=== PATIENT | female | born 1965 | race Caucasian/White ===

== ENCOUNTER 2017-03-03 08:44 | Inpatient (IN) | payer OTHER ==
[2017-03-03] MEDS ORDERED: DiphenhydrAMINE 50 mg/ml Inj IVP STA (09:09)
[2017-03-03] MEDS ORDERED: EPINEPHrine 1 mg/ml (1:1000) Inj IM STA (09:11)
--- NOTE | 2017-03-03 09:17 | ED PDOC ---
Arrival/HPI - General Chief Complaint: Allergic Reaction Time Seen by Provider: 03/03/17 09:02 Historian: Patient - History of Present Illness Narrative History of Present Illness (Text): 03/03/17 09:05 Lola Rojas is a 51 year old female, who presents to the emergency department complaining of an allergic reaction since three days ago. Patient reports she dyed her hair, which caused her to have itchiness, burning sensation , and swelling on her face and neck. Patient reports it began Friday night (3 days ago) but it has gradually become worse. She notes taking Benadryl one day ago, but there was no relief. Patient also complaining of swelling and "soreness " in throat and some shortness of breath. Patient denies headache, chest pain, abdominal, nausea, vomiting, or other complaints. PMD: None Time/Duration: < week (3 days ago) Symptom Onset: Gradual Symptom Course: Worsening Associated Symptoms (Text): itchiness, burning, swelling on face and neck, and shortness of breath Past Medical History - Provider Review Nursing Documentation Reviewed: Yes - Infectious Disease Hx of Infectious Diseases: None - Reproductive Menopause: Yes - Psychiatric Hx Substance Use: No - Anesthesia Hx Anesthesia: No Family/Social History - Physician Review Nursing Documentation Reviewed: Yes Family/Social History: Other (non-contributory) Smoking Status: Unknown If Ever Smoked Hx Alcohol Use: No Hx Substance Use: No Allergies/Home Meds Allergies/Adverse Reactions: Allergies hair dye Allergy (Uncoded 03/03/17 08:55) RASH Home Medications: Home Meds Medication Instructions Recorded Confirmed No Known Home Med 03/03/17 03/03/17 Review of Systems - Review of Systems Constitutional: absent: Fevers Respiratory: SOB. absent: Cough Cardiovascular: absent: Chest Pain Gastrointestinal: absent: Abdominal Pain, Nausea, Vomiting Skin: Other (face swelling, itchiness, and burning sensation ) Physical Exam Vital Signs Reviewed: Yes Vital Signs Temp Pulse Resp BP Pulse Ox 03/03/17 15:09 98.7 F 80 18 132/87 100 03/03/17 14:18 18 124/79 97 03/03/17 11:49 83 18 122/63 03/03/17 10:56 98.3 F 83 18 124/68 03/03/17 08:51 98 F 82 18 113/65 99 Temperature: Afebrile Blood Pressure: Normal Pulse: Regular Respiratory Rate: Normal Appearance: Positive for: Well-Appearing, Non-Toxic, Comfortable Pain Distress: None Mental Status: Positive for: Alert and Oriented X 3 - Systems Exam Head: Present: Atraumatic, Normocephalic Pupils: Present: PERRL Extroacular Muscles: Present: EOMI Conjunctiva: Present: Normal Mouth: Present: Moist Mucous Membranes, Normal Lips, Normal Tounge Pharnyx: Present: Normal. No: ERYTHEMA, EXUDATE, TONSILS ENLARGED, Peritonsilar Swelling, Uvular Deviation, Muffled/Hoarse Voice, Strider, Soft Palate/Uvular Edema Neck: Present: Normal Range of Motion Respiratory/Chest: Present: Clear to Auscultation, Good Air Exchange. No: Respiratory Distress, Accessory Muscle Use Cardiovascular: Present: Regular Rate and Rhythm, Normal S1, S2. No: Murmurs Abdomen: Present: Normal Bowel Sounds. No: Tenderness, Distention, Peritoneal Signs Upper Extremity: Present: Normal Inspection, Edema ((+)edema of the upper face forehead and eyelids. (+) edema throughout scalp line. no lip or tongue swelling. no throat swelling.), Normal ROM, NORMAL PULSES. No: Cyanosis Lower Extremity: Present: Normal Inspection, NORMAL PULSES, Normal ROM. No: Edema Neurological: Present: GCS=15, CN II-XII Intact, Speech Normal Skin: Present: Warm, Dry, Normal Color. No: Rashes Psychiatric: Present: Alert, Oriented x 3, Normal Insight, Normal Concentration Medical Decision Making ED Course and Treatment: 03/03/17 14:20 The pt reports improvement in her breathing but continues to have severe facial swelling even after rx in the ED. there is no evidence of airway involvement at this time. disc w Dr Pugh will admit for continues IV steroids and observation. pt resting quietly at this time no resp distress. - Lab Interpretations Lab Results: 03/03/17 10:30 03/03/17 10:30 Lab Results 03/03/17 10:30: Sodium 140, Potassium 4.2, Chloride 107, Carbon Dioxide 26, Anion Gap 11, BUN 14, Creatinine 0.7, Est GFR ( Amer) > 60, Est GFR (Non- Af Amer) > 60, Random Glucose 91, Calcium 9.4, Total Bilirubin 0.8, AST 26, ALT 29, Alkaline Phosphatase 85, Total Protein 7.7, Albumin 4.0, Globulin 3.7, Albumin/Globulin Ratio 1.1 03/03/17 10:30: WBC 4.6, RBC 3.67, Hgb 11.9 L, Hct 36.4, MCV 99.2, MCH 32.4, MCHC 32.7, RDW 13.2, Plt Count 270, MPV 10.5, Gran % 48.9 L, Lymph % (Auto) 39.9 H, White % (Auto) 7.8 H, Eos % (Auto) 3.2, Baso % (Auto) 0.2, Gran # 2.27, Lymph # 1.9, White # 0.4, Eos # 0.2, Baso # 0.01 I have reviewed the lab results: Yes - Medication Orders Current Medication Orders: Albuterol/Ipratropium (Duoneb 3 Mg/0.5 Mg (3 Ml) Ud) 3 ml IH [id number] MIGUEL Last Admin: 03/04/17 07:50 Dose: 3 ml Albuterol/Ipratropium (Duoneb 3 Mg/0.5 Mg (3 Ml) Ud) 3 ml IH Q2H PRN PRN Reason: Shortness of Breath Benzonatate (Tessalon Perles) 100 mg PO Q8H PRN PRN Reason: Cough Diphenhydramine HCl (Benadryl) 50 mg IVP Q6H PRN PRN Reason: Itching / Pruritus Last Admin: 03/04/17 02:14 Dose: 50 mg IVP Administration Document 03/04/17 02:14 [facility] (Rec: 03/04/17 02:20 [facility] [id number]) Charges for Administration # of IVP Administrations 1 Famotidine (Pepcid) 20 mg IVP DAILY MIGUEL Sodium Chloride (Sodium Chloride 0.9%) 1,000 mls @ 100 mls/hr IV .Q10H MIGUEL Last Admin: 03/03/17 23:30 Dose: 100 mls/hr eMAR Start Stop Document 03/03/17 23:30 [facility] (Rec: 03/04/17 00:06 [facility] [id number]) Intravenous Solution Start Date 03/03/17 Start Time 23:30 End Date 03/04/17 End time 09:30 Total Infusion Time 600 Acetaminophen (Ofirmev) 1,000 mg in 100 mls @ 400 mls/hr IVPB Q6H PRN PRN Reason: Pain, Mild (1-3) Stop: 03/05/17 23:34 Last Admin: 03/04/17 00:07 Dose: 400 mls/hr eMAR Start Stop Document 03/04/17 00:07 MPD (Rec: 03/04/17 00:09 MPD [id number]) Intravenous Solution Start Date 03/04/17 Start Time 00:00 End Date 03/04/17 End time 00:15 Total Infusion Time 15 [facility] Pain Assessment Document 03/04/17 00:07 MPD (Rec: 03/04/17 00:09 D [id number]) Pain Reassessment Is this a pain reassessment? No Sleep Is patient sleeping during reassessment? No Presence of Pain Presence of Pain Yes Pain Scale Used Pain Scale Used Numeric Location Left, Right or Bilateral Bilateral Pain Location Body Teller Temporal Description Description Throbbing Intensity of Pain at present 8 Pain Behavior Facial Grimacing Aggravating Factors None Alleviating Factors/Management Medication Techniques Alleviating Factors Medication Effects of Pain unable to sleep Re-Assess: [facility] Pain Assessment Document 03/04/17 01:07 MPD (Rec: 03/04/17 07:49 MPD [facility] [id number]) Pain Reassessment Is this a pain reassessment? Yes Sleep Is patient sleeping during reassessment? Yes Loratadine (Claritin) 10 mg PO DAILY [facility]IGUEL Methylprednisolone (Solu-Medrol) 40 mg IVP Q12 [facility] Last Admin: 03/03/17 21:28 Dose: 40 mg IVP Administration Document 03/03/17 21:28 MJ (Rec: 03/03/17 21:28 [id number]) Charges for Administration # of IVP Administrations 1 Montelukast Sodium (Singulair) 10 mg PO HS MIGUEL Last Admin: 03/03/17 21:28 Dose: 10 mg Discontinued Medications Diphenhydramine HCl (Benadryl) 50 mg IVP STAT STA Stop: 03/03/17 09:10 Last Admin: 03/03/17 10:13 Dose: 50 mg IVP Administration Document 03/03/17 10:13 RG (Rec: 03/03/17 10:13 RG [id number]) Charges for Administration # of IVP Administrations 1 Epinephrine HCl (Epinephrine) 0.3 mg IM STAT STA Stop: 03/03/17 09:12 Last Admin: 03/03/17 10:13 Dose: 0.3 mg IM Administration Charges Document 03/03/17 10:13 RG (Rec: 03/03/17 10:14 RG [id number]) Injection Site MAR Injection Site Right Deltoid Charges for Administration # of IM Administrations 1 Famotidine (Pepcid) 20 mg IVP STAT STA Stop: 03/03/17 09:10 Last Admin: 03/03/17 10:13 Dose: 20 mg IVP Administration Document 03/03/17 10:13 RG (Rec: 03/03/17 10:13 RG [id number]) Charges for Administration # of IVP Administrations 1 Sodium Chloride (Sodium Chloride 0.9%) 1,000 mls @ 999 mls/hr IV .Q1H1M STA Stop: 03/03/17 12:12 Last Admin: 03/03/17 11:15 Dose: 999 mls/hr eMAR Start Stop Document 03/03/17 11:15 RG (Rec: 03/03/17 11:33 [id number]) Intravenous Solution Start Date 03/03/17 Start Time 11:15 End Date 03/03/17 End time 12:15 Total Infusion Time 60 Ibuprofen (Motrin Tab) 600 mg PO STAT STA Stop: 03/03/17 17:30 Last Admin: 03/03/17 17:51 Dose: 600 mg [facility] Pain/Vitals Document 03/03/17 17:51 DSZ (Rec: 03/03/17 17:51 DSZ [id number]) Pain Reassessment Is This A Pain ReAssessment? No Sleep Is patient sleeping during reassessment? No Presence of Pain Presence of Pain Yes Pain Scale Used Pain Scale Used Numeric Location Pain Location Body Site Neck Description Intermittent Intensity 9 Scale Used Numeric Pain Behavior Withdrawal from Touch Alleviating Factors Medication Re-Assess: [facility] Pain/Vitals Document 03/03/17 18:51 DSZ (Rec: 03/03/17 19:12 DSZ [id number]) Pain Reassessment Is This A Pain ReAssessment? Yes Sleep Is patient sleeping during reassessment? No Presence of Pain Presence of Pain Yes Pain Scale Used Pain Scale Used Numeric Location Pain Location Body Site Neck Description Intermittent Intensity 3 Scale Used Numeric Pain Behavior Withdrawal from Touch Alleviating Factors Medication Methylprednisolone (Solu-Medrol) 125 mg IVP STAT STA Stop: 03/03/17 09:10 Last Admin: 03/03/17 10:12 Dose: 125 mg IVP Administration Document 03/03/17 10:12 CELINA (Rec: 03/03/17 10:12 RG [id number]) Charges for Administration # of IVP Administrations 1 Pneumococcal Polyvalent Vaccine (Pneumovax 23 Vaccine) 0.5 ml IM .ONCE ONE Stop: 03/03/17 17:59 - Scribe Statement The provider has reviewed the documentation as recorded by the Fidel Banks Provider Scribe Attestation: All medical record entries made by the Scribe were at my direction and personally dictated by me. I have reviewed the chart and agree that the record accurately reflects my personal performance of the history, physical exam, medical decision making, and the department course for this patient. I have also personally directed, reviewed, and agree with the discharge instructions and disposition. Disposition/Present on Arrival - Present on Arrival Any Indicators Present on Arrival: No History of DVT/PE: No History of Uncontrolled Diabetes: No Urinary Catheter: No History of Decub. Ulcer: No History Surgical Site Infection Following: None - Disposition Have Diagnosis and Disposition been Completed?: Yes Diagnosis: Allergic reaction Disposition: HOSPITALIZED Disposition Time: 14:31 Patient Problems: Current Active Problems Problem Status Onset Allergic reaction Acute Condition: STABLE
[2017-03-03 10:41] LABS: BASO # 0.01 K/mm3 (0.0-2.0); BASO % 0.2 % (0.0-3.0); EOS # 0.2 (0.0-0.7); EOS % 3.2 % (1.5-5.0); GRAN # 2.27 (1.4-6.5); GRAN % 48.9 % (50.0-68.0); HEMATOCRIT 36.4 % (36.0-48.0); LYMPH # 1.9 (1.2-3.4); LYMPH % 39.9 % (22.0-35.0); MEAN CELL VOLUME 99.2 fl (80.0-105.0); MEAN CORPUSCULAR HEMOGLOBIN 32.4 pg (25.0-35.0); MEAN CORPUSCULAR HGB CONC 32.7 g/dl (31.0-37.0); MEAN PLATELET VOLUME 10.5 fl (7.0-11.0); MONO # 0.4 (0.1-0.6); MONO % 7.8 % (1.0-6.0); RED CELL DISTRIBUTION WIDTH 13.2 % (11.5-14.5); WHITE BLOOD COUNT 4.6 10^3/ul (4.5-11.0)
[2017-03-03 10:46] LABS: ALB/GLOB RATIO 1.1 (1.1-1.8); ALKALINE PHOSPHATASE 85 U/L (38-126); ALT/SGPT 29 U/L (7-56); AST/SGOT 26 U/L (14-36); BILIRUBIN,TOTAL 0.8 mg/dL (0.2-1.3); BLOOD UREA NITROGEN 14 mg/dL (7-21); CALCIUM 9.4 mg/dL (8.4-10.5); CARBON DIOXIDE 26 mmol/L (21-33); CHLORIDE 107 mmol/L (98-107); GFR AFRICAN-AMERICAN > 60; GLUCOSE,RANDOM 91 mg/dL (70-110); POTASSIUM 4.2 mmol/L (3.6-5.0); SODIUM 140 mmol/L (132-148); TOTAL PROTEIN 7.7 g/dL (5.8-8.3)
[2017-03-03] MEDS ORDERED: Sodium Chloride 0.9% 1,000 ML IV STA (11:12)
[2017-03-03] MEDS ORDERED: Influenza Vaccine 60 mcg/0.5 mL SYR (4YR UP) IM ONE (17:58)
[2017-03-03] MEDS ORDERED: Pneumococcal 23-Valent Vaccine IM ONE (17:58)
[2017-03-03] MEDS: Albuterol-Ipratrop 3 mg / 0.5 (3 ml) UD IH SCH ×2 (18:01→19:03)
--- NOTE | 2017-03-03 20:36 | CP.PCM.CON ---
<Malorie Contreras - Last Filed: 03/03/17 22:00> History of Present Illness - History of Present Illness History of Present Illness: ICU evaluation consult for Dr Blake. Reason for consult: Shortness of breath Patient is a 51 y/o with PMH of CAP last year presenting with allergic reaction to hair dye. Patient states on Friday night she used the product for the first time, and right after washing her hair, she started to feel itchiness on her scalps, she washed her hair multiple time again afterward with no significant improvement. By Friday she started to notice large bumps in the back of her scalp, then few more bumps formed on her face. On friday she noted swelling of her face. This Morning when she woke up her eyes were completely shut, with sore throat when she swallows, and swelling around her neck and diffuse stomach aches. Patient was with her normal self prior to using this product. Patient denies fever, chills, n/v/d. Patient admits to cough and sob when she tries to communicate. Admits to chest pain with the coughing. The cough is mostly dry. Patient has no known history of allergies, and no history of asthma. ICU is consulted for evaluation of the shortness of breath and possible close monitoring in the ICU. PMH: CAP last year PSH: FMH: Denies h/o asthma, htn, dm in the family. 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 Home meds: none Allergy: nkda Review of Systems - Constitutional Constitutional: Headache. absent: Chills, Fever, Weight Loss, Weakness - EENT Eyes: Pain, Other (eyelid swelling, feels numb when she tries to open her eyes. ). absent: Blurred Vision, Change in Vision, Loss of Peripheral Vision, Photophobia Ears: absent: Ear Pain, Abnormal Hearing, Dizziness Nose/Mouth/Throat: Change in Voice, Lip Swelling, Sore Throat, Throat Swelling, Facial Pain, Neck Pain, Neck Mass. absent: Nasal Congestion, Tongue Swelling - Cardiovascular Cardiovascular: Chest Pain, Dyspnea, Edema (of face). absent: Chest Pain at Rest, Irregular Heart Rhythm, Leg Edema, Lightheadedness, Palpitations, Pedal Edema, Radiating Pain, Rapid Heart Rate, Slow Heart Rate, Syncope - Respiratory Respiratory: Cough, Dyspnea, Wheezing, Pain on Inspiration, Pain with Coughing. absent: Hemoptysis, Dyspnea on Exertion, Snoring, Stridor, Chest Congestion, Excessive Mucous Production - Gastrointestinal Gastrointestinal: Abdominal Pain. absent: Belching, Bloating, Change in Stool Character, Diarrhea, Heartburn, Nausea - Genitourinary Genitourinary: absent: Dysuria - Musculoskeletal Musculoskeletal: Neck Pain. absent: Muscle Weakness, Myalgias, Numbness - Integumentary Integumentary: Erythema, Pruritus, Rash, Skin Pain, Skin Ulcer, Swelling (of face) - Neurological Neurological: absent: Dizziness, Loss of Vision - Psychiatric Psychiatric: Anxiety - Endocrine Endocrine: absent: Deepening of Voice, Fatigue - Hematologic/Lymphatic Hematologic: absent: Easy Bleeding Past Patient History - Infectious Disease Hx of Infectious Diseases: None - Tetanus Immunizations Tetanus Immunization: Unknown - Past Medical History & Family History Past Medical History?: Yes Past Family History: Reviewed and not pertinent - Past Social History Smoking Status: Never Smoked Chewing Tobacco Use: No Cigar Use: No Alcohol: None Drugs: Denies Home Situation {Lives}: With Family - PULMONARY Hx Pneumonia: Yes (2015) - MUSCULOSKELETAL/RHEUMATOLOGICAL Hx Falls: No - PSYCHIATRIC Hx Substance Use: No - SURGICAL HISTORY Hx Surgeries: Yes (12/15/1989) - ANESTHESIA Hx Anesthesia: No Meds Allergies/Adverse Reactions: Allergies Allergy/AdvReac Type Severity Reaction Status Date / Time hair dye Allergy RASH Uncoded 03/03/17 08:55 - Medications Medications: Current Medications Acetaminophen (Tylenol 325mg Tab) 650 mg PO Q4H PRN PRN Reason: pain fever Albuterol/Ipratropium (Duoneb 3 Mg/0.5 Mg (3 Ml) Ud) 3 ml IH [id number] [facility] Last Admin: 03/03/17 19:03 Dose: Not Given Famotidine (Pepcid) 40 mg PO HS [facility] Loratadine (Claritin) 10 mg PO DAILY [facility] Methylprednisolone (Solu-Medrol) 40 mg IVP Q12 [facility] Montelukast Sodium (Singulair) 10 mg PO HS [facility] Physical Exam - Constitutional Appears: In Acute Distress (mild respiratory distress) - Head Exam Head Exam: ATRAUMATIC, NORMOCEPHALIC. absent: NORMAL INSPECTION (multiple bumps and erythematous rashes on the scalp, neck an face.) - Eye Exam Eye Exam: EOMI, Periorbital swelling, Scleral icterus. absent: Conjunctival injection, Periorbital tenderness - ENT Exam ENT Exam: Mucous Membranes Moist, Normal Oropharynx Additional comments: no tongue edema, mild gum swelling diffusely. no tonsilar edema, or deviation, no peritonsilar abscess, +mild throat irritation. - Neck Exam Neck exam: Positive for: Lymphadenopathy (frontal cervical adenpathy rafat.), Tenderness. Negative for: Thyromegaly - Respiratory Exam Respiratory Exam: Chest Wall Tenderness, Wheezes (diffusely, inspiratory.), Respiratory Distress (mild). absent: Accessory Muscle Use, Rales, Rhonchi, Stridor - Cardiovascular Exam Cardiovascular Exam: Tachycardia, REGULAR RHYTHM, RRR, +S1, +S2. absent: Gallop , JVD, Rubs - GI/Abdominal Exam GI & Abdominal Exam: Normal Bowel Sounds, Soft, Tenderness (diffusely.). absent : Distended, Firm, Guarding, Mass, Rigid - Extremities Exam Extremities exam: Positive for: normal inspection. Negative for: pedal edema, tenderness - Back Exam Back exam: NORMAL INSPECTION. absent: CVA tenderness (L), CVA tenderness (R), paraspinal tenderness, rash noted - Neurological Exam Neurological exam: Alert, Oriented x3 - Psychiatric Exam Psychiatric exam: Anxious, Normal Affect - Skin Skin Exam: Abrasion (on the face.), Dry, Rash (on the scalp and face, diffuse with mild erythema.), Warm Results - Vital Signs Recent Vital Signs: Last Vital Signs Temp 98.3 F 03/03/17 17:46 Pulse 75 03/03/17 17:46 Resp 21 03/03/17 17:46 BP 135/73 03/03/17 17:46 Pulse Ox 96 03/03/17 16:55 - Labs Result Diagrams: 03/03/17 10:30 03/03/17 10:30 Assessment & Plan - Assessment and Plan (Free Text) Assessment: 51 y/o F with no significant PMH admitted due to angioedema like symptoms likely from allergic reaction to hair dye, and ICU is being consulted due to worsening in shortness of breath. Patient is currently stable hemodynamically and respiratory cheng. However due to the extent of the edema, patient to be closely monitored in ICU. Plan: Neurology: Patient is a&ox3 and is able to speak in full sentences. Pulm: Angioedema likely due to allergic reaction to hair dye. - Patient is currently saturating well on room air. - Will obtain ABG - Will transfer patient to icu for close monitoring - CT neck soft tissue to evaluate for tracheal narrowing - Head of bed elevation above 35 degrees to prevent aspiration. - Continue with solumedrol 40 mg q12, duoneb q6 standing and q2 prn - will start Benadryl for pruritus, and tessalon pearls for cough - continue Pepcid. - 2 L nasal cannula prn - Will consult ENT Cardiology: Patient is hemodynamically stable, will continue to monitor. Renal: stable, will continue to monitor. Started on NS100 cc/hr for maintenance. Endo: keep normoglycemic. GI: Keep npo, Pepcid for gi prophylaxis. Heme: stable, will continue to monitor. ID: patient with low probability for sepsis, will continue to monitor. will keep normothermic. Prophylaxis: Compression mechanical devices for DVT prophylaxis, and Pepcid for gi prophylaxis. Patient seen, examined and case discussed with the attending. - Date & Time Date: 03/03/17 Time: 22:00 <Piero Blake Q - Last Filed: 03/04/17 03:05> Meds - Medications Medications: Current Medications Albuterol/Ipratropium (Duoneb 3 Mg/0.5 Mg (3 Ml) Ud) 3 ml IH [id number] [facility] Last Admin: 03/04/17 01:45 Dose: 3 ml Albuterol/Ipratropium (Duoneb 3 Mg/0.5 Mg (3 Ml) Ud) 3 ml IH Q2H PRN PRN Reason: Shortness of Breath Benzonatate (Tessalon Perles) 100 mg PO Q8H PRN PRN Reason: Cough Diphenhydramine HCl (Benadryl) 50 mg IVP Q6H PRN PRN Reason: Itching / Pruritus Last Admin: 03/04/17 02:14 Dose: 50 mg Famotidine (Pepcid) 20 mg IVP DAILY [facility] Sodium Chloride (Sodium Chloride 0.9%) 1,000 mls @ 100 mls/hr IV .Q10H [facility] Last Admin: 03/03/17 23:30 Dose: 100 mls/hr Acetaminophen (Ofirmev) 1,000 mg in 100 mls @ 400 mls/hr IVPB Q6H PRN PRN Reason: Pain, Mild (1-3) Stop: 03/05/17 23:34 Last Admin: 03/04/17 00:07 Dose: 400 mls/hr Loratadine (Claritin) 10 mg PO DAILY [facility]IGUEL Methylprednisolone (Solu-Medrol) 40 mg IVP Q12 [facility] Last Admin: 03/03/17 21:28 Dose: 40 mg Montelukast Sodium (Singulair) 10 mg PO HS [facility] Last Admin: 03/03/17 21:28 Dose: 10 mg Results - Vital Signs Recent Vital Signs: Last Vital Signs Temp 97.9 F 03/03/17 22:24 Pulse 61 03/04/17 01:00 Resp 13 03/04/17 01:00 BP 143/74 03/04/17 01:00 Pulse Ox 98 03/04/17 01:00 - Labs Result Diagrams: 03/03/17 10:30 03/03/17 10:30 Labs: Laboratory Results - last 24 hr 03/03/17 20:55 pCO2 33 L pO2 96.0 HCO3 20.0 L ABG pH 7.39 ABG Total CO2 21.0 L ABG O2 Saturation 98.3 H ABG O2 Content 16.9 ABG Base Excess -4.2 L ABG Hemoglobin 12.4 ABG Carboxyhemoglobin 1.4 POC ABG HHb (Measured) 1.7 ABG Methemoglobin 0.7 ABG O2 Capacity 17.2 Hgb O2 Saturation 96.2 FiO2 21.0 Attending/Attestation - Attestation I have personally seen and examined this patient.: Yes I have fully participated in the care of the patient.: Yes I have reviewed all pertinent clinical information: Yes Notes (Text): 03/04/17 03:01 I agree with the above mentioned note and exam with the addition of the followin51 y/o female without a significant PMHx presented to the hospital after experiencing an allergic reaction to hair dye 3 days prior. ICU consulted for further management and evaluation due to patient having episodes of wheezing while on the medical floor. Patient taken to ICU for closer monitoring however on physical exam, she demonstrates no stridor bilaterally and wheezing is end expiratory along with adequate air entry/exchange bilaterally. CT Neck/soft tissues done to evaluate for laryngeal edema, however appeared within normal limits.
[2017-03-03] MEDS ORDERED: Albuterol-Ipratrop 3 mg / 0.5 (3 ml) UD IH PRN (21:00)
[2017-03-03 21:01] LABS: ARTERIAL BLOOD GAS O2 CAPACITY 17.2 mL/dl (16-24); ARTERIAL BLOOD GAS O2 CONTENT 16.9 ML/dl (15-23); ARTERIAL BLOOD GAS PH 7.39 (7.35-7.45); ARTERIAL BLOOD HGB O2 SAT 96.2 % (95.0-98.0); CARBOXYHEMOGLOBIN 1.4 % (0.5-1.5); HHB 1.7 % (0-5); METHEMOGLOBIN 0.7 % (0.0-3.0)
[2017-03-03] MEDS: MethylPREDNISolone 40 mg Vial IVP SCH (21:28)
[2017-03-03] MEDS: DiphenhydrAMINE 50 mg/ml Inj IVP PRN (21:35)
[2017-03-03] MEDS ORDERED: Iodixanol 320 MG/ML 100 ML BOTTLE IV ONE (23:24)
[2017-03-03] MEDS: Sodium Chloride 0.9% 1,000 ML IV SCH (23:30)
--- NOTE | 2017-03-04 00:58 | CT ---
EXAM: CT Neck With Intravenous Contrast EXAM DATE/TIME: 03/03/2017 9:01 PM CLINICAL HISTORY: 51 years old, female; Signs and symptoms; Dyspnea / difficulty breathing; Additional info: Evaluate for trachea narrowing TECHNIQUE: Axial computed tomography images of the neck with intravenous contrast. All CT scans at this facility use one or more dose reduction techniques, viz.: automated exposure control; ma/kV adjustment per patient size (including targeted exams where dose is matched to indication; i.e. head); or iterative reconstruction technique. Coronal and sagittal reformatted images were created and reviewed. CONTRAST: 100 mL of OMNI administered intravenously. COMPARISON: There are no prior studies for comparison. FINDINGS: Brain: No acute abnormalities are seen in visualized portion of the brain. Sinuses: There is no acute sinusitis. Ears and mastoids Middle ears and mastoids are unremarkable Orbits: Orbital contents are unremarkable. Superficial soft tissues: There is superficial left facial edema. There is less extensive right facial edema. Tonsils and adenoids: Tonsils and adenoids are unremarkable. Deep facial spaces: Parapharyngeal spaces are symmetric. There are no facial masses. Retropharyngeal soft tissues are unremarkable. Salivary glands: Parotid and submandibular glands are unremarkable. Airway: Airway is unremarkable. There is no airway obstruction. Epiglottis and aryepiglottic folds are unremarkable. Subglottic trachea is normal in caliber. Thyroid: Right lobe of the thyroid is unremarkable. There is a heterogeneous complex left thyroid nodule. Nodule measures approximately 1.8 x 1.7 x2.3 cm. ascular: Vascular structures are unremarkable. Nodes: There are small shotty cervical nodes. Lung apices: Motion limits evaluation of the lung apices. There is dependent atelectasis. Bony structures: There are no acute osseous abnormalities. There are degenerative changes in the visualized spine IMPRESSION: No airway obstruction; asymmetric facial edema left greater than right; shotty adenopathy; complex left thyroid nodule, sonography is suggested for more optimal evaluation Additional findings as described above.
[2017-03-04] MEDS: Albuterol-Ipratrop 3 mg / 0.5 (3 ml) UD IH SCH ×4 (01:45→19:54)
[2017-03-04] MEDS: DiphenhydrAMINE 50 mg/ml Inj IVP PRN ×3 (02:14→21:43)
--- NOTE | 2017-03-04 03:14 | PCM.SEPTIC ---
Sepsis Progress Note - Reassessment Type Time of Evaluation: 03:15 Reassessment Type: Non-invasive reassessment - Non Invasive Reassessment Were the most recent vital sign reviewed: Yes Vital Sign (Latest): Temp Pulse Resp BP Pulse Ox 97.9 F 61 13 143/74 98 03/03/17 22:24 03/04/17 01:00 03/04/17 01:00 03/04/17 01:00 03/04/17 01:00 Cardiovascular: Yes: Regular Rate, Rhythm, Chest Non Tender Respiratory: Yes: Normal Breath Sounds. No: Accessory Muscle Use, Crackles, Rales, Rhonchi, Wheezing, Respiratory Distress Capillary Refill: Normal (Less than 2 sec) Skin: Normal Color, Warm, Dry - Invasive Reassessment (complete 2 of 4) Was a Central Venous Pressure Measurement obtained within 6 Hours after the presentation of septic shock: No Was a central venous oxygen measurement obtained within 6 hours after the presentation of septic shock: No Was a bedside cardiovascular ultrasound performed within 6 hours after the presentation of septic shock: No Was a passive leg raise performed or was a fluid challenge performed within 6 hrs of the initial fluid bolus: Yes Fluid Challenge performed: Yes
--- NOTE | 2017-03-04 04:27 | HP ---
CHIEF COMPLAINT: Swelling of the face, shortness of breath, something is stuck in my throat, and itchiness of the head. HISTORY OF PRESENT ILLNESS: Ms. Lola Rojas is a 51-year-old female with past medical history of pneumonia last year, came to the emergency room with allergic reaction to the hair color. The patient states that on Friday night, she used the product for the first time and right after washing her hair, she started to fell itchiness on her scalp. She washed her hair multiple times that is five times again and again afterward with no significant improvement. By Friday, she stated to notice a large bump in the back of her scalp then few more bumps formed on the face. On Friday, she noticed swelling of her lips. This morning when she woke up, her eyes were completely shut off and sore throat when she swallowed. She feels around her neck and diffuse some pain and diffuse stomach aches. The patient was with her normal self prior to the use of the product. No fever. No chills. No history of nausea, vomiting, or diarrhea. The patient admits to cough and shortness of breath when she tries to communicate. She is not able to complete even one sentence without coughing. A length of time discussion done with the ER physician and in the evening when I went to see the patient on the 5th floor, I was not comfortable with that patient's situation, sitting on the creative intern of the room on the creative intern bed, then I told nurse I want to transfer this patient to the ICU. Package Delivery Room Service Runner consult called. According to the patient, she does not have any history of any type of allergies, no history of asthma, but has pneumonia last year. ICU strategic consultant came and appreciated their output. PAST MEDICAL HISTORY: Not significant. History of pneumonia last year and section. FAMILY HISTORY: History of hypertension and diabetes mellitus in the family. SOCIAL HISTORY: She denies smoking. No alcohol abuse. No illicit drugs. 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 HOME MEDICATIONS: Denied. Just took Benadryl [id number] after this allergic reaction. ALLERGIES: THE PATIENT IS NOT ALLERGIC WITH ANY MEDICATION. REVIEW OF SYSTEMS: The patient was seen and examined on the bedside on the 5th floor in the corner room, not feeling comfortable. Eyes are still completely closed. Feeling shortness of breath. Even on command, she was not able to open her eyes and was not able to complete sentence in one breath. Coughing. Feeling something is stuck in the throat. PHYSICAL EXAMINATION VITAL SIGNS: Temperature is 98.3, pulse 75, blood pressure 135/73, and respiratory rate 21. HEENT: Head has bumps. Atraumatic and normocephalic. Eyes are , completely closed. Nose is patent. Lips are swollen. Mucous membranes moist. Whole face is swollen. NECK: Supple. No carotid bruits or thyromegaly. CHEST: Bilaterally symmetrical. HEART: S1 and S2 positive. LUNGS: Poor air entry. ABDOMEN: Soft. Bowel sound present. No organomegaly. EXTREMITIES: No edema. No cyanosis. NEUROLOGIC: The patient is awake and alert. Moving all four extremities. No focal deficits. Obeying order. LABORATORY DATA: White blood cell 4.6, hemoglobin 11.9, hematocrit 36.4, and platelets 270. Sodium 140, potassium 4.2, BUN 14, creatinine 0.7, AST 26, ALT 29. ASSESSMENT AND PLAN: Ms. Lola Rojas is a 51-year-old lady with anemia, allergic reaction with the dye, history of pneumonia last year, and history of section. The patient was admitted and IV steroids given. Respiratory distress. Package Delivery Room Service Runner consult called. Facial swelling. We will put ENT consult also. Consult called with Dr. Ap Oseguera for angioedema. Epinephrine given. Pepcid was given for GI prophylaxis. Singulair was started. Solu-Medrol given. We will follow up. Sameera Pugh MD
[2017-03-04 06:43] LABS: BASO # 0.01 K/mm3 (0.0-2.0); BASO % 0.1 % (0.0-3.0); GRAN # 9.47 (1.4-6.5); HEMATOCRIT 34.3 % (36.0-48.0); LYMPH # 1.3 (1.2-3.4); LYMPH % 11.9 % (22.0-35.0); MEAN CELL VOLUME 98.6 fl (80.0-105.0); MEAN CORPUSCULAR HEMOGLOBIN 32.8 pg (25.0-35.0); MEAN CORPUSCULAR HGB CONC 33.2 g/dl (31.0-37.0); MEAN PLATELET VOLUME 10.9 fl (7.0-11.0); MONO # 0.3 (0.1-0.6); RED CELL DISTRIBUTION WIDTH 13.1 % (11.5-14.5); WHITE BLOOD COUNT 11.1 10^3/ul (4.5-11.0)
[2017-03-04 07:13] LABS: BLOOD UREA NITROGEN 11 mg/dL (7-21); CALCIUM 9.2 mg/dL (8.4-10.5); CARBON DIOXIDE 23 mmol/L (21-33); CHLORIDE 111 mmol/L (98-107); GFR AFRICAN-AMERICAN > 60; GLUCOSE,RANDOM 121 mg/dL (70-110); POTASSIUM 4.1 mmol/L (3.6-5.0); SODIUM 142 mmol/L (132-148)
--- NOTE | 2017-03-04 07:37 | CP.CCUPN ---
<Rian Flaherty - Last Filed: 03/04/17 11:48> CCU Subjective - Physician Review Subjective (Free Text): Patient seen and examined at bedside. Resting comfortably in bed. No acute overnight events. Patient states SOB has improved relative to baseline. Offers no new complaints at this time. Denies fever, chills, chest pain, abdominal pain , nausea, vomiting, diarrhea, constipation, and urinary symptoms. 03/04/17 07:34 CCU Objective - Vital Signs / Intake & Output Intake and Output (Last 8hrs): Intake & Output 03/03/17 03/04/17 03/04/17 22:59 06:59 14:59 Intake Total 360 Balance 360 Weight 250 lb Intake: Oral 360 Other: # Voids Urine, Voided 360 # Bowel Movements 0 - Physical Exam Head: Positive for: Atraumatic, Normocephalic Pupils: Positive for: PERRL Extroacular Muscles: Positive for: EOMI Conjunctiva: Positive for: Normal Mouth: Positive for: Moist Mucous Membranes, Normal Lips, Normal Tounge Pharnyx: Positive for: Normal. Negative for: ERYTHEMA, EXUDATE, TONSILS ENLARGED Neck: Positive for: Normal Range of Motion Respiratory/Chest: Positive for: Clear to Auscultation, Good Air Exchange. Negative for: Respiratory Distress, Accessory Muscle Use Cardiovascular: Positive for: Regular Rate and Rhythm, Normal S1, S2. Negative for: Murmurs Abdomen: Positive for: Normal Bowel Sounds. Negative for: Tenderness, Distention, Peritoneal Signs Upper Extremity: Positive for: Normal Inspection, Normal ROM, NORMAL PULSES. Negative for: Cyanosis Lower Extremity: Positive for: Normal Inspection, NORMAL PULSES, Normal ROM. Negative for: Edema Neurological: Positive for: GCS=15, CN II-XII Intact, Speech Normal Skin: Positive for: Warm, Dry, Normal Color. Negative for: Rashes Psychiatric: Positive for: Alert, Oriented x 3, Normal Insight, Normal Concentration - Medications Active Medications: Active Medications Generic Name Dose Route Start Last Admin Trade Name Freq PRN Reason Stop Dose Admin Albuterol/Ipratropium 3 ml 03/03/17 20:00 03/04/17 01:45 Duoneb 3 Mg/0.5 Mg (3 Ml) Ud IH 3 ml [id number] MIGUEL Administration Albuterol/Ipratropium 3 ml 03/03/17 21:00 Duoneb 3 Mg/0.5 Mg (3 Ml) Ud IH Q2H PRN Shortness of Breath Benzonatate 100 mg 03/03/17 21:01 Tessalon Perles PO Q8H PRN Cough Diphenhydramine HCl 50 mg 03/03/17 21:01 03/04/17 02:14 Benadryl IVP 50 mg Q6H PRN Administration Itching / Pruritus Famotidine 20 mg 03/04/17 10:00 Pepcid IVP DAILY MIGUEL Sodium Chloride 1,000 mls @ 100 mls/hr 03/03/17 21:15 03/03/17 23:30 Sodium Chloride 0.9% IV 100 mls/hr .Q10H MIGUEL Administration Acetaminophen 1,000 mg in 100 mls @ 400 mls/hr 03/03/17 23:33 03/04/17 00:07 Ofirmev IVPB 03/05/17 23:34 400 mls/hr Q6H PRN Administration Pain, Mild (1-3) Loratadine 10 mg 03/04/17 10:00 Claritin PO DAILY MIGUEL Methylprednisolone 40 mg 03/03/17 22:00 03/03/17 21:28 Solu-Medrol IVP 40 mg Q12 MIGUEL Administration Montelukast Sodium 10 mg 03/03/17 22:00 03/03/17 21:28 Singulair PO 10 mg HS MIGUEL Administration - Patient Studies Lab Studies: Lab Studies 03/04/17 03/04/17 03/03/17 Range/Units 05:50 05:50 20:55 WBC 11.1 H D (4.5-11.0) 10^3/ul RBC 3.48 L (3.5-6.1) 10^6/uL Hgb 11.4 L (12.0-16.0) g/dL Hct 34.3 L (36.0-48.0) % MCV 98.6 (80.0-105.0) fl MCH 32.8 (25.0-35.0) pg MCHC 33.2 (31.0-37.0) g/dl RDW 13.1 (11.5-14.5) % Plt Count 277 (120.0-450.0) 10^3/uL MPV 10.9 (7.0-11.0) fl Gran % 85.0 H (50.0-68.0) % Lymph % (Auto) 11.9 L (22.0-35.0) % [place] % (Auto) 3.0 (1.0-6.0) % Eos % (Auto) 0.0 L (1.5-5.0) % Baso % (Auto) 0.1 (0.0-3.0) % Gran # 9.47 H (1.4-6.5) Lymph # 1.3 (1.2-3.4) [place] # 0.3 (0.1-0.6) Eos # 0.0 (0.0-0.7) Baso # 0.01 (0.0-2.0) K/mm3 pCO2 33 L (35-45) mm/Hg pO2 96.0 (80-100) mm/Hg HCO3 20.0 L (21-28) mmol/L ABG pH 7.39 (7.35-7.45) ABG Total CO2 21.0 L (22-28) mmol.L ABG O2 Saturation 98.3 H (95-98) % ABG O2 Content 16.9 (15-23) ML/dl ABG Base Excess -4.2 L (-2.0-3.0) mmol/L ABG Hemoglobin 12.4 (11.7-17.4) g/dL ABG Carboxyhemoglobin 1.4 (0.5-1.5) % POC ABG HHb (Measured) 1.7 (0-5) % ABG Methemoglobin 0.7 (0.0-3.0) % ABG O2 Capacity 17.2 (16-24) mL/dl Hgb O2 Saturation 96.2 (95.0-98.0) % FiO2 21.0 % Sodium 142 (132-148) mmol/L Potassium 4.1 (3.6-5.0) mmol/L Chloride 111 H (98-107) mmol/L Carbon Dioxide 23 (21-33) mmol/L Anion Gap 12 (10-20) BUN 11 (7-21) mg/dL Creatinine 0.6 L (0.7-1.2) mg/dL Est GFR ( Amer) > 60 Est GFR (Non-Af Amer) > 60 Random Glucose 121 H (70-110) mg/dL Calcium 9.2 (8.4-10.5) mg/dL Laboratory Results - last 24 hr 03/03/17 03/04/17 03/04/17 20:55 05:50 05:50 WBC 11.1 H D RBC 3.48 L Hgb 11.4 L Hct 34.3 L MCV 98.6 MCH 32.8 MCHC 33.2 RDW 13.1 Plt Count 277 MPV 10.9 Gran % 85.0 H Lymph % (Auto) 11.9 L [place] % (Auto) 3.0 Eos % (Auto) 0.0 L Baso % (Auto) 0.1 Gran # 9.47 H Lymph # 1.3 [place] # 0.3 Eos # 0.0 Baso # 0.01 pCO2 33 L pO2 96.0 HCO3 20.0 L ABG pH 7.39 ABG Total CO2 21.0 L ABG O2 Saturation 98.3 H ABG O2 Content 16.9 ABG Base Excess -4.2 L ABG Hemoglobin 12.4 ABG Carboxyhemoglobin 1.4 POC ABG HHb (Measured) 1.7 ABG Methemoglobin 0.7 ABG O2 Capacity 17.2 Hgb O2 Saturation 96.2 FiO2 21.0 Sodium 142 Potassium 4.1 Chloride 111 H Carbon Dioxide 23 Anion Gap 12 BUN 11 Creatinine 0.6 L Est GFR ( Amer) > 60 Est GFR (Non-Af Amer) > 60 Random Glucose 121 H Calcium 9.2 Review of Systems - Review of Systems Review of Systems: 12 point review of systems negative except as indicated in the [facility] Critical Care Progress Note - Nutrition Nutrition: Nutrition Category Date Time Status NPO Diet [DIET] Diets 03/03/17 Dinner Ordered Assessment/Plan - Assessment and Plan (Free Text) Assessment: Patient is a 51 y/o female with no significant PMH who was admitted for evaluation and treatment of angioedema whiich is clinically suspected to be from an allergic reaction to hair dye. Patient was transferred to the ICU for closer monitoring of worsening shortness of breath. Patient is currently stable hemodynamically. Plan: Neurology: - Patient is awake, alert, responds to verbal stimuli, answers questions appropriately, follows commands, and moves extremities past midline Pulm: Angioedema likely due to allergic reaction to hair dye. - Patient is currently saturating well on room air - CT neck soft tissue to evaluate for tracheal narrowing- No airway obstruction ; asymmetric facial edema left greater than right; shotty adenopathy; complex left thyroid nodule - 35 degrees to prevent aspiration. - Continue with solumedrol 40 mg q12, duoneb q6 standing and q2 prn - c/w Benadryl for pruritus, and tessalon pearls for cough - continue Pepcid. - 2 L nasal cannula prn - Will consult ENT- await and appreciate recommendations Cardio: - Patient is hemodynamically stable, continue to monitor. - HR trended, reviewed, and appreciated, will continue to monitor closely - BPs trended, reviewed, and appreciated, will continue to monitor closely Renal: - stable, will continue to monitor. Started on NS100 cc/hr for maintenance. - creatinine and BUN trended, reviewed, and appreciated, will continue to monitor closely Endo: - keep euglycemic. - blood glucoses trended, reviewed, and appreciated, will continue to monitor closely GI: - npo - Pepcid for gi prophylaxis. Heme: -Hgbs trended, reviewed, and appreciated , will continue to monitor closely - stable, will continue to monitor. ID: - temperatures are trended, reviewed, and appreciated, will continue to monitor closely - will keep normothermic - WBC elevation noted- likely secondary to IV solumedrol- continue to monitor closely via CBC Dispo: - Patient is stable for transfer out of unit Prophylaxis: Compression mechanical devices for DVT prophylaxis, and Pepcid for gi prophylaxis. Critical care team will sign off at this time. Please reconsult if needed. Thank you for the opportunity to participate in the care of this patient. Patient seen, case discussed with, and plan approved by attending physician, Dr. Turk. <Ankush Turk - Last Filed: 03/04/17 12:10> CCU Objective - Vital Signs / Intake & Output Vital Signs (Last 4 hours): Vital Signs Pulse Resp BP Pulse Ox 03/04/17 09:30 80 20 98 03/04/17 09:20 91 H 20 98 03/04/17 09:14 84 27 H 140/72 03/04/17 09:10 79 18 03/04/17 09:00 85 32 H 03/04/17 08:50 80 16 03/04/17 08:40 83 106 H 03/04/17 08:30 110 H 40 H 03/04/17 08:20 98 03/04/17 08:10 84 15 98 Intake and Output (Last 8hrs): Intake & Output 03/03/17 03/04/17 03/04/17 22:59 06:59 14:59 Intake Total 360 Balance 360 Weight 250 lb 235 lb Intake: Oral 360 Other: # Voids Urine, Voided 360 # Bowel Movements 0 - Medications Active Medications: Active Medications Generic Name Dose Route Start Last Admin Trade Name Freq PRN Reason Stop Dose Admin Acetaminophen 650 mg 03/04/17 09:38 03/04/17 09:46 Tylenol 325mg Tab PO 650 mg Q6H PRN Administration Headache Albuterol/Ipratropium 3 ml 03/03/17 20:00 03/04/17 07:50 Duoneb 3 Mg/0.5 Mg (3 Ml) Ud IH 3 ml [id number] MIGUEL Administration Albuterol/Ipratropium 3 ml 03/03/17 21:00 Duoneb 3 Mg/0.5 Mg (3 Ml) Ud IH Q2H PRN Shortness of Breath Benzonatate 100 mg 03/03/17 21:01 Tessalon Perles PO Q8H PRN Cough Diphenhydramine HCl 50 mg 03/03/17 21:01 03/04/17 02:14 Benadryl IVP 50 mg Q6H PRN Administration Itching / Pruritus Famotidine 20 mg 03/04/17 10:00 03/04/17 09:47 Pepcid IVP 20 mg DAILY MIGUEL Administration Sodium Chloride 1,000 mls @ 100 mls/hr 03/03/17 21:15 03/03/17 23:30 Sodium Chloride 0.9% IV 100 mls/hr .Q10H MIGUEL Administration Acetaminophen 1,000 mg in 100 mls @ 400 mls/hr 03/03/17 23:33 03/04/17 00:07 Ofirmev IVPB 03/05/17 23:34 400 mls/hr Q6H PRN Administration Pain, Mild (1-3) Loratadine 10 mg 03/04/17 10:00 03/04/17 09:46 Claritin PO 10 mg DAILY MIGUEL Administration Methylprednisolone 40 mg 03/03/17 22:00 03/04/17 09:46 Solu-Medrol IVP 40 mg Q12 MIGUEL Administration Montelukast Sodium 10 mg 03/03/17 22:00 03/03/17 21:28 Singulair PO 10 mg HS MIGUEL Administration - Patient Studies Lab Studies: Lab Studies 03/04/17 03/04/17 03/03/17 Range/Units 05:50 05:50 20:55 WBC 11.1 H D (4.5-11.0) 10^3/ul RBC 3.48 L (3.5-6.1) 10^6/uL Hgb 11.4 L (12.0-16.0) g/dL Hct 34.3 L (36.0-48.0) % MCV 98.6 (80.0-105.0) fl MCH 32.8 (25.0-35.0) pg MCHC 33.2 (31.0-37.0) g/dl RDW 13.1 (11.5-14.5) % Plt Count 277 (120.0-450.0) 10^3/uL MPV 10.9 (7.0-11.0) fl Gran % 85.0 H (50.0-68.0) % Lymph % (Auto) 11.9 L (22.0-35.0) % [place] % (Auto) 3.0 (1.0-6.0) % Eos % (Auto) 0.0 L (1.5-5.0) % Baso % (Auto) 0.1 (0.0-3.0) % Gran # 9.47 H (1.4-6.5) Lymph # 1.3 (1.2-3.4) [place] # 0.3 (0.1-0.6) Eos # 0.0 (0.0-0.7) Baso # 0.01 (0.0-2.0) K/mm3 pCO2 33 L (35-45) mm/Hg pO2 96.0 (80-100) mm/Hg HCO3 20.0 L (21-28) mmol/L ABG pH 7.39 (7.35-7.45) ABG Total CO2 21.0 L (22-28) mmol.L ABG O2 Saturation 98.3 H (95-98) % ABG O2 Content 16.9 (15-23) ML/dl ABG Base Excess -4.2 L (-2.0-3.0) mmol/L ABG Hemoglobin 12.4 (11.7-17.4) g/dL ABG Carboxyhemoglobin 1.4 (0.5-1.5) % POC ABG HHb (Measured) 1.7 (0-5) % ABG Methemoglobin 0.7 (0.0-3.0) % ABG O2 Capacity 17.2 (16-24) mL/dl Hgb O2 Saturation 96.2 (95.0-98.0) % FiO2 21.0 % Sodium 142 (132-148) mmol/L Potassium 4.1 (3.6-5.0) mmol/L Chloride 111 H (98-107) mmol/L Carbon Dioxide 23 (21-33) mmol/L Anion Gap 12 (10-20) BUN 11 (7-21) mg/dL Creatinine 0.6 L (0.7-1.2) mg/dL Est GFR ( Amer) > 60 Est GFR (Non-Af Amer) > 60 Random Glucose 121 H (70-110) mg/dL Calcium 9.2 (8.4-10.5) mg/dL Laboratory Results - last 24 hr 03/03/17 03/04/17 03/04/17 20:55 05:50 05:50 WBC 11.1 H D RBC 3.48 L Hgb 11.4 L Hct 34.3 L MCV 98.6 MCH 32.8 MCHC 33.2 RDW 13.1 Plt Count 277 MPV 10.9 Gran % 85.0 H Lymph % (Auto) 11.9 L [place] % (Auto) 3.0 Eos % (Auto) 0.0 L Baso % (Auto) 0.1 Gran # 9.47 H Lymph # 1.3 [place] # 0.3 Eos # 0.0 Baso # 0.01 pCO2 33 L pO2 96.0 HCO3 20.0 L ABG pH 7.39 ABG Total CO2 21.0 L ABG O2 Saturation 98.3 H ABG O2 Content 16.9 ABG Base Excess -4.2 L ABG Hemoglobin 12.4 ABG Carboxyhemoglobin 1.4 POC ABG HHb (Measured) 1.7 ABG Methemoglobin 0.7 ABG O2 Capacity 17.2 Hgb O2 Saturation 96.2 FiO2 21.0 Sodium 142 Potassium 4.1 Chloride 111 H Carbon Dioxide 23 Anion Gap 12 BUN 11 Creatinine 0.6 L Est GFR ( Amer) > 60 Est GFR (Non-Af Amer) > 60 Random Glucose 121 H Calcium 9.2 Critical Care Progress Note - Nutrition Nutrition: Nutrition Category Date Time Status Regular Diet [DIET] Diets 03/04/17 Lunch Ordered Assessment/Plan - Assessment and Plan (Free Text) Plan: Patient seen and examined, on rounds with resident, agree with note, with following additions/exceptions: Pt is 51yo female with no significant PMH who was admitted for evaluation and treatment of angioedema from possible allergic reaction to hair dye. Patient was transferred to the ICU for closer monitoring of worsening shortness of breath. Patient is currently stable hemodynamically. Patient is currently awake , alert, HD stable, comfortable on room air, with no focal wheezing noted. Lungs CTABL, no stridor. Patient tolerated clear liquid breakfast. On exam has no evidence of laryngeal, glossal edema. Patient does have asymetrical facial swelling. Angioedema Recommend: - supp o2 as needed - follow up cultures - Solumedrol 40mg BID - Pepcid 20mg daily - Benadryl 50mg IV qh6r PRN - ENT consult - FS control - GI ppx - DVT ppx - STABLE, transfer to regional medical floor
[2017-03-04] MEDS: MethylPREDNISolone 40 mg Vial IVP SCH ×2 (09:46→21:41)
[2017-03-05] MEDS: Albuterol-Ipratrop 3 mg / 0.5 (3 ml) UD IH SCH ×4 (01:21→19:56)
--- NOTE | 2017-03-05 03:44 | CON ---
DATE: 03/04/2017 EAR, NOSE AND THROAT CONSULTATION CONSULTING PHYSICIAN: Ap Oseguera DO REFERRING PHYSICIAN: Sameera Pugh MD REASON FOR CONSULTATION: Facial swelling. HISTORY OF PRESENT ILLNESS: This is a 51-year-old female with past medical history is nonsignificant who was admitted to [facility] for an allergic reaction to hair dye. The patient reports that on Friday night, she use hair dye for the first time and by Friday, she began noticing swelling to her face. She came to the emergency room on Friday after noticing she was having some difficulty swallowing and breathing. She was admitted to the ICU where she has been treated with Solu-Medrol, Pepcid and Benadryl with good resolution of her symptoms including the swelling of her face and difficulty breathing. She also had a CT scan performed of her neck, which demonstrated facial edema on the left and no airway obstruction. Upon evaluation, she report significant improvement in her symptoms. She feels like the swelling has subsided; however, still a little bit present on her face and her neck. She denies any dysphagia or odynophagia, difficulty breathing, or shortness of breath. No easy breathing or drooling at this point. She denies prior history of allergies and denies prior history of similar events. PAST MEDICAL HISTORY: As stated above. SOCIAL HISTORY: Denies smoking or alcohol use. HOME MEDICATIONS: None. ALLERGIES: NO KNOWN DRUG ALLERGIES. REVIEW OF SYSTEMS: Negative as per HPI. OBJECTIVE: VITAL SIGNS: Her temperature is 98.8, heart rate is 82, blood pressure is 117/77, respirations are 18, and O2 saturation is 100% on room air. GENERAL: She is awake, alert and oriented x3, in no acute distress. HEENT: Head is atraumatic and normocephalic. Eyes: Pupils are equal, round reactive to light. Extraocular movements grossly intact. Ears are unremarkable. Nose is patent bilaterally. No discharge. Oral cavity: Lips are unremarkable with no swelling. Tongue is mobile and midline. No swelling. No floor of mouth edema. Uvula is midline. Palate is symmetrical without swelling. Posterior pharyngeal wall without any abnormalities. Face: She does have some residual swelling periorbitally and in the cheeks of her face. NECK: Supple, nontender, and shotty lymphadenopathy with mild swelling. Thyroid is not enlarged. RESPIRATIONS: Unlabored. No stridor, no drooling, and symmetrical. LABORATORY DATA: She has a white blood cell count of 11.1, hemoglobin of 11.4, hematocrit of 34.3, and platelet count of 237. Sodium of 142, potassium of 4.1, chloride of 111, creatinine of 0.6, and glucose of 121. IMAGING DATA: She has a soft tissue of the neck, which reads no airway protection, asymmetrical facial edema, left greater than right, shotty adenopathy, and complex left thyroid nodule. ASSESSMENT AND PLAN: This is a 51-year-old female with no significant past medical history who present with facial edema secondary to an allergic reaction to hair dye. At this point, the patient seem that she is much improved; however, she still has some residual swelling, I would recommend continuing Solu-Medrol while the patient is in house and discharging her home on a Medrol Dosepak, low suspicion for angioedema, given that the patient had an inciting factor of hair dye which most likely cause the allergic reaction; therefore, I do not think she would need any Pepcid, H2 blockers at this point and Benadryl could be used as needed. The patient's ear, nose, and throat exam at this point is very benign; therefore, diet can be as tolerated and O2 supplementation as needed. The patient should follow up with an travel insurance agent to ensure there are no additional allergies that my have cause this reaction. The remainder of the management is as per primary team. Thank you for allowing us to participate in this patient's care. Ap Oseguera DO
[2017-03-05] MEDS: Sodium Chloride 0.9% 1,000 ML IV SCH (03:52)
[2017-03-05] MEDS: DiphenhydrAMINE 50 mg/ml Inj IVP PRN ×3 (05:21→21:44)
--- NOTE | 2017-03-05 06:52 | CON ---
DATE: 03/04/2017 PULMONARY CONSULTATION REFERRING PHYSICIAN: Dr. Pugh. REASON FOR CONSULTATION: Allergic reaction with laryngeal edema, shortness of breath, and cough. HISTORY OF PRESENT ILLNESS: This is a 51-year-old female without any significant past medical history, recently came to [facility], had some new hair color, ended up with scalp itching, swelling, shortness of breath, facial and lip swelling, comes to ER. She was seen by ICU team, transferred to ICU, received IV steroids and Benadryl with some benefit, presently lying in the ICU, head at 45 degrees. Has obvious swelling of the face, still short of breath. No wheezing, no stridor. No nausea, no vomiting, no diarrhea. According to the patient, she may have some bronchitis and lung disease, has been using outpatient rescue inhaler. PAST MEDICAL HISTORY: History of bronchitis/pneumonia in the past. No other cardiopulmonary disease reported. FAMILY HISTORY: Positive for diabetes, hypertension. SOCIAL HISTORY: She works for [employer]. Denies any smoking or alcohol use. ALLERGIES: UNKNOWN. MEDICATIONS: She is on Benadryl 50 mg IV q. 6 hours p.r.n., Claritin 10 mg daily, albuterol/Atrovent nebulizer q. 6 hours, Tylenol p.r.n., Pepcid 20 mg IV daily, Singulair 10 mg at bedtime, IV fluids normal saline 100 mL per hour, Solu-Medrol 40 mg q. 12 hours, Tessalon Perles q. 8 hours. REVIEW OF SYSTEMS: No headache. Has some rhinitis, cough, shortness of breath, facial swelling. No stridor. No nausea, no vomiting, no diarrhea. No leg pain or leg swelling. Admits to have snoring at nighttime. PHYSICAL EXAMINATION: GENERAL: Lying in the bed, no acute distress. VITAL SIGNS: Temperature is 98, heart rate is 80, respiratory rate is 20, blood pressure is 126/65, and pulse ox is 98% on room air. HEENT: Moist mucous membranes. Crowded airway. Has facial swelling. Mallampati score is 4. Lip has swelling. NECK: There is no stridor. LUNGS: Has a fair airflow with few rhonchi. HEART: S1 and S2. ABDOMEN: Soft and nontender. No organomegaly. EXTREMITIES: No edema. NEUROLOGIC: Awake and alert. Follows simple commands. LABORATORY DATA: Shows hemoglobin 11.4, hematocrit 34.3, WBC 11.1, platelet count is 277. ABG shows pH 7.39, pCO2 of 33, O2 of 96, that was on admission yesterday. Sodium 142, potassium 4.1, chloride 111, bicarbonate 23, BUN 11, creatinine 0.6, glucose is 121, calcium is 9.2. AST 26, ALT 29, alk phos is 85, albumin is 4.0. Has a soft tissue neck CT done, which shows no airway obstruction; asymmetrical facial edema, left greater than the right; shotty adenopathy; complex left thyroid nodule. IMPRESSION AND PLAN: Anaphylactic reaction with laryngeal edema, facial swelling, shortness of breath, probably secondary to chemical composition in her hair color with history of asthma in the past and bronchitis. Agree with present treatment. Continue intravenous Solu-Medrol, antihistamine, p.r.n. Benadryl, gastric prophylaxis. Continue close monitoring. Has a thyroid nodule, will need a followup ultrasound. Once improved outpatient, needs a pulmonary function test and may need a sleep study. Thank you and we will follow with you. Malena Yo MD
[2017-03-05 07:12] LABS: BASO # 0.01 K/mm3 (0.0-2.0); BASO % 0.1 % (0.0-3.0); GRAN # 5.53 (1.4-6.5); GRAN % 73.6 % (50.0-68.0); HEMATOCRIT 34.8 % (36.0-48.0); LYMPH # 1.7 (1.2-3.4); MEAN CELL VOLUME 101.2 fl (80.0-105.0); MEAN CORPUSCULAR HEMOGLOBIN 32.3 pg (25.0-35.0); MEAN CORPUSCULAR HGB CONC 31.9 g/dl (31.0-37.0); MEAN PLATELET VOLUME 10.6 fl (7.0-11.0); MONO # 0.3 (0.1-0.6); MONO % 4.3 % (1.0-6.0); RED CELL DISTRIBUTION WIDTH 13.4 % (11.5-14.5); WHITE BLOOD COUNT 7.5 10^3/ul (4.5-11.0)
[2017-03-05 07:25] LABS: IRON 53 ug/dL (45-180)
[2017-03-05 07:37] LABS: ALB/GLOB RATIO 1.1 (1.1-1.8); ALKALINE PHOSPHATASE 71 U/L (38-126); ALT/SGPT 63 U/L (7-56); AST/SGOT 50 U/L (14-36); BILIRUBIN,TOTAL 0.4 mg/dL (0.2-1.3); BLOOD UREA NITROGEN 10 mg/dL (7-21); CALCIUM 9.1 mg/dL (8.4-10.5); CARBON DIOXIDE 26 mmol/L (21-33); CHLORIDE 109 mmol/L (98-107); CHOLESTEROL 171 mg/dL (130-200); GFR AFRICAN-AMERICAN > 60; GLUCOSE,RANDOM 110 mg/dL (70-110); POTASSIUM 4.6 mmol/L (3.6-5.0); SODIUM 142 mmol/L (132-148); TOTAL PROTEIN 7.4 g/dL (5.8-8.3)
--- NOTE | 2017-03-05 08:57 | PN ---
DATE: 03/04/2017 SUBJECTIVE: The patient is a 51-year-old female. The patient seen and examined in the bedside in the unit, feeling significantly better. Patient still has swelling of the face, currently hemodynamically stable. Awake and alert. No chest pain. Comfortable on room air. No focal wheezing. Lungs are stable. No stridor. The patient tolerated clear liquid for breakfast and for lunch. Food is advanced. No laryngeal edema. The patient does have asymmetrical facial swelling. No nausea, vomiting, or diarrhea. No hematuria or hematochezia. No constipation. No urinary symptoms. No abdominal pain. No fever or chills. PHYSICAL EXAMINATION: VITAL SIGNS: Temperature 98.9, pulse 80, blood pressure 126/65, respiratory rate 20. HEENT: Head is normocephalic, atraumatic. Eyes are open today. Nose patent. Face is swollen. No swelling of the lips. No swelling of the tongue. NECK: Supple. No carotid bruits or thyromegaly. CHEST: Bilaterally symmetrical. HEART: S1 and S2 positive. LUNGS: Clear to auscultation. ABDOMEN: Soft. Bowel sounds present. No organomegaly. EXTREMITIES: No edema, no cyanosis. NEUROLOGIC: The patient is awake and alert. Moving all 4 extremities. No focal deficits. MEDICATIONS: Benadryl, Claritin, DuoNeb, acetaminophen, Pepcid, Singulair, NS, Solu-Medrol, and benzoate. LABORATORY DATA: White blood cells 11.1; on admission, it was 12.6. Hemoglobin 11.4, hematocrit 34.3, platelets 277. Sodium 142, potassium 4.1, BUN 11, creatinine 0.3, glucose 121. ASSESSMENT AND PLAN: The patient is a 51-year-old with leukocytosis, anemia, hyperchloremia, hyperglycemia, history of pneumonia last year, came with angioedema, getting better, swelling is better. We will keep oxygenation as needed. Cultures done, waiting for that. Getting Solu-Medrol, Pepcid, and Benadryl. ENT is on the case, waiting for the input. Gastrointestinal and deep venous thrombosis prophylaxis. Discussion done with the mental health assistant. dora usg of soft tissue of the neck. CAT scan, no area of obstruction. Asymmetrical facial edema, left greater than the right. Spotty adenopathy. Compressed left thyroid nodule. They are suggesting sonography for optimal evaluation. There are degenerative changes in the visualized bone. We will follow. Sameera Pugh MD [facility]
[2017-03-05] MEDS: MethylPREDNISolone 40 mg Vial IVP SCH ×2 (09:55→21:07)
[2017-03-05 13:36] LABS: FOLATE 6.5 ng/mL
--- NOTE | 2017-03-05 13:54 | US ---
HISTORY: especially neck TECHNIQUE: Sonographic evaluation of the thyroid gland. COMPARISON: CT neck soft tissue 03/03/2017 FINDINGS: RIGHT LOBE: Measures 4.3 x 1.1 x 1.5 cm. Minimally heterogeneous Nodules: At least 2 nodules noted: Midpole anterior 6 x 5 x 3 mm nearly isoechoic parallel minimally heterogeneous no increased vascularity. -benign-appearing Lower pole more hypoechoic parallel well-circumscribed homogeneous almost cystic appearing nodule 7 x 3 x 5 mm -benign-appearing LEFT LOBE: Measures 4.7 x 1.7 x 2.4 cm. Mildly heterogeneous Nodules: 2 noted Upper pole heterogeneous circumscribed parallel peripheral vascularity 3.1 x 1.3 x 2.4 cm. No gross calcifications within it noted. Given its size and mild heterogeneity, consider tissue sampling. Indeterminate Lower pole Similar heterogeneous and similar vascularity yet smaller solid nodule 1.0 x 1.2 x 0.8 cm. Consider its FNA for further evaluation as well. ISTHMUS: Measures 0.2 cm. Normal echotexture and flow. Nodules: None OTHER FINDINGS: None . IMPRESSION: Multinodular goiter. Dominant nodules left-sided - consider FNA of at least the largest nodule
--- NOTE | 2017-03-05 15:30 | PN ---
DATE: 03/05/2017 PULMONARY PROGRESS NOTE REFERRING PHYSICIAN: Sameera Pugh MD SUBJECTIVE: The patient is lying in the bed with head at 45 degrees, getting nebulizer treatment, feels better. Still has a facial swelling. Mild shortness of breath. No nausea, no vomiting, no diarrhea. No leg pain or leg swelling. OBJECTIVE: GENERAL: No acute distress. VITAL SIGNS: Temperature 98, heart rate 70, respiratory rate 20, blood pressure 136/83, and pulse oximetry 100% on nasal cannula. HEENT: Moist mucous membranes. Crowed airway. Mallampati score is 4. Has facial swelling. LUNGS: Fair airflow with rhonchi. HEART: S1 and S2. ABDOMEN: Soft and nontender. No organomegaly. EXTREMITIES: No edema. NEUROLOGIC: Awake, alert, and follow simple command. MEDICATIONS: She is on Benadryl 50 mg IV q.6 hours p.r.n. for itching, Claritin 10 mg daily, DuoNeb q.6 hours round the clock and q.12 hours p.r.n., Tylenol p.r.n., Pepcid 20 mg daily, Singulair 10 mg daily, IV fluids normal saline 100 mL per hour, Solu-Medrol 40 mg q.12 hours, and Tessalon Perles 100 mg q.8 hours p.r.n. LABORATORY DATA: Shows hemoglobin 11.1, hematocrit 34.8, WBC 7.5, and platelet count 245. Sodium 142, potassium 4.6, chloride 109, bicarbonate 26, BUN is 10, creatinine 0.7, glucose 110, calcium 9.1, iron is 53, AST 50, ALT 63, alkaline phosphatase is 71, and TSH is 0.44. IMPRESSION AND PLAN: Hair color dye allergic reaction with angioedema, facial swelling, bronchospasm on steroids, antihistamines, and antileukotriene. IV fluid, supplement oxygen, nebulizer treatment. We will order a CBC with differential tomorrow. Continue present care. Thank you and we will follow with you. Malena Yo MD
--- NOTE | 2017-03-05 20:09 | US ---
EXAM: US Abdomen Complete CLINICAL HISTORY: 52 years old, female; Abnormal findings; Abnormal lab test; Elevated liver enzymes; Additional info: Ab. Lft , especially liver TECHNIQUE: Real-time ultrasound of the abdomen (complete) with image documentation. COMPARISON: No relevant prior studies available. FINDINGS: Liver: Liver measures 14.8 CM longitudinally. There is increased echogenicity consistent with fatty infiltration. Portal vein is patent with normal direction of flow. No intrahepatic bile duct dilation. Gallbladder: Gallbladder is contracted. Gallbladder wall thickness is 3 mm. No gallstones. No sonographic Dacosta's sign. Common bile duct: Common bile duct measures 4.6 mm. No stones. No dilation. Pancreas: Unremarkable as visualized. Kidneys: Right kidney measures 11.2 CM longitudinally. Left kidney measures 10.4 CM longitudinally. No stones. No hydronephrosis. Spleen: Spleen measures 10.8 CM longitudinally. Aorta: Unremarkable. No aneurysm. Inferior vena cava: Unremarkable. IMPRESSION: 1. Hepatic steatosis. 2. No biliary duct dilatation. 3. Remainder of findings as above.
--- NOTE | 2017-03-05 23:14 | PN ---
DATE: SUBJECTIVE: The patient is a 52-year-old female. The patient is seen and examined at the bedside. Looking a little bit better. Swelling little bit better, but still lips are swollen, having shortness of breath. No nausea, vomiting or diarrhea. No hematuria or hematochezia. No fever, no chills. No headache, no dizziness. PHYSICAL EXAMINATION: VITAL SIGNS: Temperature 98.4, pulse 71, blood pressure 114/73 and respiratory rate 19. HEENT: Head is normocephalic and atraumatic. Eyes; PERRLA. Extraocular muscles intact. Conjunctivae clear. Nose patent. Mucous membrane moist. NECK: Supple. No carotid bruits. No JVD or thyromegaly. CHEST: Bilaterally symmetrical. HEART: S1 and S2 positive. LUNGS: Clear to auscultation. ABDOMEN: Soft. Bowel sounds present. No organomegaly. EXTREMITIES: No edema. No cyanosis. NEUROLOGIC: The patient is awake and alert. Moving all 4 extremities. No focal deficit. MEDICATIONS: The patient is on Benadryl, Claritin, albuterol, DuoNeb, famotidine, montelukast, prednisone and Tessalon Perles. LABORATORY DATA: White blood cells 7.5, yesterday was 11.1; hemoglobin 11.1; hematocrit 34.8; and platelets 245. Sodium 142, potassium 4.6, BUN 10, creatinine 0.7, iron saturation 15, AST 50 and AST 63. ASSESSMENT AND PLAN: Ms. Lola Rojas is a 52-year-old lady with hyperchloremia, hyperglycemia, iron deficiency, abnormal liver function tests, we will do ultrasound of the liver, history of leukocytosis, anemia, seen by Pulmonary Critical Care due to shortness of breath and HAIR COLOR DYE ALLERGIC REACTION with angioedema. The patient's swelling is getting better. Bronchospasm getting better, on steroid, on antihistamine, antileukotriene and IV fluid. Getting supplement oxygen with the nasal cannula. Repeat electrolytes. Gastrointestinal and deep venous thrombosis prophylaxis. Out of bed, physical therapy. Thyroid nodule. Did thyroid ultrasound. Multinodular goiter, dominant nodule on left side. Consider FNA of at least the largest nodule. Will put consult with Dr. Alex Navarro. Seen by ENT Dr. Ap Oseguera. The patient has no significant past medical history. ENT recommended to continue Solu-Medrol. Actually, according to ENT, low suspicion of angioedema, but ENT never saw the patient , the day of admession with angioedema . The patient's ears, nose and throat examination at this point is very benign as per ENT. 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 We will do ultrasound of the liver because of abnormal liver function tests and we will do biopsy of the thyroid gland. We will follow up. Sameera Pugh MD MTDD
[2017-03-06 00:04] VITALS: RESP 18
[2017-03-06] MEDS: Albuterol-Ipratrop 3 mg / 0.5 (3 ml) UD IH SCH ×3 (01:27→13:22)
[2017-03-06] MEDS: DiphenhydrAMINE 50 mg/ml Inj IVP PRN ×2 (04:20→10:49)
[2017-03-06 06:03] VITALS: BP 151/90; TEMP 98.2
[2017-03-06 06:43] LABS: BASO # 0.01 K/mm3 (0.0-2.0); BASO % 0.1 % (0.0-3.0); EOS % 0.1 % (1.5-5.0); GRAN # 5.6 (1.4-6.5); GRAN % 71.7 % (50.0-68.0); HEMATOCRIT 33.4 % (36.0-48.0); LYMPH # 1.8 (1.2-3.4); LYMPH % 23.1 % (22.0-35.0); MEAN CELL VOLUME 100.3 fl (80.0-105.0); MEAN CORPUSCULAR HEMOGLOBIN 32.7 pg (25.0-35.0); MEAN CORPUSCULAR HGB CONC 32.6 g/dl (31.0-37.0); MEAN PLATELET VOLUME 10.5 fl (7.0-11.0); MONO # 0.4 (0.1-0.6); RED CELL DISTRIBUTION WIDTH 13.4 % (11.5-14.5); WHITE BLOOD COUNT 7.8 10^3/ul (4.5-11.0)
[2017-03-06 07:01] LABS: BLOOD UREA NITROGEN 12 mg/dL (7-21); CARBON DIOXIDE 28 mmol/L (21-33); CHLORIDE 107 mmol/L (98-107); GFR AFRICAN-AMERICAN > 60; GLUCOSE,RANDOM 106 mg/dL (70-110); POTASSIUM 4.9 mmol/L (3.6-5.0); SODIUM 142 mmol/L (132-148)
[2017-03-06 08:58] VITALS: O2SAT 97
[2017-03-06] MEDS: Sodium Chloride 0.9% 1,000 ML IV SCH (10:04)
[2017-03-06] MEDS: MethylPREDNISolone 40 mg Vial IVP SCH (10:05)
[2017-03-06 12:19] VITALS: PULSE 72
== END 2017-03-06 13:21 | disposition home or self-care (01) | DRG 916 ==
LOC: ED 08:44 → ERH 14:29 → 5RNO 16:52 → CCU 22:32 → 2RSO 03-04 17:41 → OBSVTOIN 03-04 20:26
PROVIDERS: ADMIT Internal Medicine; ATTEND Internal Medicine
PROC: 3E0F7GC Introduction of Other Therapeutic Substance into Respiratory Tract, Via Natural or Artificial Opening (ICD-10-PCS; principal; 2017-03-03)
DX: T78.3XXA Angioneurotic edema, initial encounter (principal); J38.4 Edema of larynx; X58.XXXA Exposure to other specified factors, initial encounter; E04.2 Nontoxic multinodular goiter; J45.909 Unspecified asthma, uncomplicated; Z87.01 Personal history of pneumonia (recurrent); Z83.3 Family history of diabetes mellitus; Z82.49 Family history of ischemic heart disease and other diseases of the circulatory system

== ENCOUNTER 2018-02-25 09:07 | Emergency (ER) | payer OTHER ==
[2018-02-25] MEDS: Albuterol-Ipratrop 3 mg / 0.5 (3 ml) UD IH SCH ×3 (09:46→10:19)
--- NOTE | 2018-02-25 09:54 | ED PDOC ---
Arrival/HPI - General Time Seen by Provider: 02/25/18 09:34 Historian: Patient - History of Present Illness Narrative History of Present Illness (Text): 02/25/18 09:51 A 52 year old female, whose past medical history includes pneumonia (2015), presents to the emergency department complaining of shortness of breath with associated chest pain for the past 2 days. 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 States 2 days ago she breathed in a lot of dust and since then symptoms began. Patient mentions chest pain worsens with deep breaths and describes pain as chest tightness. Patient notes also experiening non-productive coughing, however denies any fever, abdominal pain, urinary symptoms, vision changes, or any other complaints at this time. No PMD Past Medical History - Provider Review Nursing Documentation Reviewed: Yes - Infectious Disease Hx of Infectious Diseases: None - Tetanus Immunization Tetanus Immunization: Unknown - Pulmonary Hx Pneumonia: Yes (2015) - Musculoskeletal/Rheumatological Hx Falls: No - Psychiatric Hx Substance Use: No - Anesthesia Hx Anesthesia: No Family/Social History - Physician Review Nursing Documentation Reviewed: Yes Family/Social History: No Known Family HX Smoking Status: Unknown If Ever Smoked Hx Alcohol Use: No Hx Substance Use: No Allergies/Home Meds Allergies/Adverse Reactions: Allergies hair dye Allergy (Uncoded 03/03/17 08:55) RASH Review of Systems - Review of Systems Constitutional: absent: Fevers Eyes: absent: Vision Changes ENT: absent: Hearing Changes Respiratory: SOB, Cough (non-productive) Cardiovascular: Chest Pain (chest tightness, pain with deep breaths). absent: Edema, Calf Pain, SHAIKH, Orthopnea, Syncope Gastrointestinal: absent: Abdominal Pain, Constipation, Diarrhea, Nausea, Vomiting Genitourinary Female: absent: Dysuria, Frequency, Urine Output Changes Musculoskeletal: absent: Other (no calf swelling) Skin: Other (allergic skin changes around eyes) Neurological: absent: Headache, Dizziness, Focal Weakness, Gait Changes, Speech Changes Physical Exam Vital Signs Reviewed: Yes Vital Signs Temp Pulse Resp BP Pulse Ox 02/25/18 09:34 97.9 F 97 H 17 137/84 99 Temperature: Afebrile Blood Pressure: Normal Pulse: Regular Respiratory Rate: Normal Appearance: Positive for: Well-Appearing, Non-Toxic, Comfortable Pain Distress: None Mental Status: Positive for: Alert and Oriented X 3 - Systems Exam Head: Present: Atraumatic, Normocephalic Pupils: Present: PERRL Extroacular Muscles: Present: EOMI Conjunctiva: Present: Normal Mouth: Present: Moist Mucous Membranes Neck: Present: Normal Range of Motion Respiratory/Chest: Present: Wheezes (b/l). No: Respiratory Distress, Rales, Retracting, Rhonchi, Tachypneic Cardiovascular: Present: Regular Rate and Rhythm, Normal S1, S2. No: Murmurs Abdomen: No: Tenderness, Distention, Peritoneal Signs Back: Present: Normal Inspection Upper Extremity: Present: Normal Inspection. No: Cyanosis, Edema Lower Extremity: Present: Normal Inspection. No: Edema Neurological: Present: GCS=15, CN II-XII Intact, Speech Normal Skin: Present: Warm, Dry, Normal Color. No: Rashes Psychiatric: Present: Alert, Oriented x 3, Normal Insight, Normal Concentration Medical Decision Making ED Course and Treatment: 02/25/18 09:54 Impression: 52 year old female with shortness of breath with associated chest pain that worsens with deep breaths. Physical exam shows wheezing to lungs bilaterally Plan: -- EKG -- Chest X-ray -- Labs -- Duoneb -- Toradol -- Reassess and disposition Progress Notes: EKG: Ordered, reviewed, and independently interpreted the EKG. Rate : 88 BPM Rhythm : NSR Interpretation : No ST-segment elevations or depressions, no T-wave inversions, normal intervals. Comparison : No previous EKG for comparison. 02/25/2018 11:02 Chest X-ray IMPRESSION: No active disease. Dictator: Alex Banegas MD 02/25/18 12:06 On reevaluation, wheezing is resolved. Labs reviewed. Symptoms have been for 2 days so outside window for tamiflu. Vitals WNL and well appearing. Instructed to take benadryl for itching around eyes and to avoid exposure to dust and similar triggers. - Lab Interpretations I have reviewed the lab results: Yes - RAD Interpretation Radiology Orders: 02/25/18 09:40 CHEST TWO VIEWS (PA/LAT) [RAD] Stat - Medication Orders Current Medication Orders: Albuterol/Ipratropium (Duoneb 3 Mg/0.5 Mg (3 Ml) Ud) 3 ml IH Q15M MIGUEL Stop: 02/25/18 10:16 Discontinued Medications Ketorolac Tromethamine (Toradol) 30 mg IVP STAT STA Stop: 02/25/18 09:42 - Scribe Statement The provider has reviewed the documentation as recorded by the Fidel Braxton Provider Scribe Attestation: All medical record entries made by the Scribe were at my direction and personally dictated by me. I have reviewed the chart and agree that the record accurately reflects my personal performance of the history, physical exam, medical decision making, and the department course for this patient. I have also personally directed, reviewed, and agree with the discharge instructions and disposition. Disposition/Present on Arrival - Present on Arrival Any Indicators Present on Arrival: No History of DVT/PE: No History of Uncontrolled Diabetes: No Urinary Catheter: No History Surgical Site Infection Following: None - Disposition Have Diagnosis and Disposition been Completed?: Yes Diagnosis: URI (upper respiratory infection) Disposition: HOME/ ROUTINE Disposition Time: 12:06 Patient Plan: Discharge Patient Problems: Current Active Problems Problem Status Onset URI (upper respiratory infection) Acute Condition: GOOD Discharge Instructions (ExitCare): Viral Upper Respiratory Infection, Adult (DC) Additional Instructions: Follow-up with PMD within 2 days. Use albuterol as needed. Return to ED if condition worsens. Prescriptions: Albuterol HFA [Ventolin HFA 90 mcg/actuation (8 g)] 2 puff IH [id number] #1 puff Referrals: FAMILY PROVIDER,NO [Primary Care Provider] - Follow up with primary Forms: WORK NOTE
[2018-02-25 10:27] LABS: BASO # 0.02 K/mm3 (0.0-2.0); BASO % 0.3 % (0.0-3.0); EOS # 0.1 (0.0-0.7); EOS % 0.8 % (1.5-5.0); GRAN # 2.82 (1.4-6.5); GRAN % 45.1 % (50.0-68.0); HEMOGLOBIN 12.4 g/dL (12.0-16.0); LYMPH # 2.9 (1.2-3.4); LYMPH % 46.6 % (22.0-35.0); MEAN CELL VOLUME 97.9 fl (80.0-105.0); MEAN CORPUSCULAR HEMOGLOBIN 32.6 pg (25.0-35.0); MEAN CORPUSCULAR HGB CONC 33.3 g/dl (31.0-37.0); MEAN PLATELET VOLUME 11.5 fl (7.0-11.0); MONO # 0.5 (0.1-0.6); MONO % 7.2 % (1.0-6.0); RBC 3.8 10^6/uL (3.5-6.1); RED CELL DISTRIBUTION WIDTH 13.8 % (11.5-14.5); WHITE BLOOD COUNT 6.3 10^3/ul (4.5-11.0)
[2018-02-25 10:38] LABS: ALB/GLOB RATIO 1.1 (1.1-1.8); ALBUMIN 4.2 g/dL (3.0-4.8); ALT/SGPT 21 U/L (7-56); AST/SGOT 19 U/L (14-36); BLOOD UREA NITROGEN 16 mg/dL (7-21); CALCIUM 9.2 mg/dL (8.4-10.5); GFR NON-AFRICAN AMERICAN > 60
[2018-02-25 10:50] LABS: TROPONIN I < 0.01 ng/mL
--- NOTE | 2018-02-25 11:06 | RAD ---
Date of service: 02/25/2018 HISTORY: cough COMPARISON: No prior. TECHNIQUE: Chest PA and lateral FINDINGS: LUNGS: No active pulmonary disease. PLEURA: No significant pleural effusion identified. No pneumothorax apparent. CARDIOVASCULAR: No aortic atherosclerotic calcification present OSSEOUS STRUCTURES: No significant abnormalities. VISUALIZED UPPER ABDOMEN: Normal. OTHER FINDINGS: None. IMPRESSION: No active disease.
[2018-02-25 11:25] VITALS: BMI 37.5
[2018-02-25 11:27] VITALS: O2SAT 99
[2018-02-25] MEDS ORDERED: Albuterol-Ipratrop 3 mg / 0.5 (3 ml) UD IH STA (12:06)
[2018-02-25 12:39] VITALS: BP 130/82; PULSE 80; RESP 17; TEMP 97.6
--- NOTE | 2018-02-25 14:46 | CARD ---
APPROVED REPORT Date of service: 02/25/2018 EKG Measurement Heart [id number] <Conclusion> Normal sinus rhythm NSSTW changes
== END 2018-02-25 12:38 | disposition home or self-care (01) ==
LOC: ED 09:07
DX: J06.9 Acute upper respiratory infection, unspecified (principal)
CPT/HCPCS: 71046; 80053; 82550; 83880; 84484; 85025; 93005; 96374; 99285; J1885

== ENCOUNTER 2018-04-14 10:18 | Inpatient (IN) | payer OTHER ==
--- NOTE | 2018-04-14 10:28 | ED PDOC ---
Arrival/HPI - General Historian: Patient - History of Present Illness Narrative History of Present Illness (Text): 04/14/18 10:25 53 y/o female, pmh including bronchitis/pneumonia, post menopausal, nkda, c/o coughing/wheezing/fever started last night. Pt. stated that she has been coughing, associated with wheezing, no night sweat, admits fever last night subjectively with no objective temp, afebrile in the ER with no antipyretic taken for the past 8 hours, no recent traveling, no night sweat, no dizziness, no change in vision, no other medical or psychological complaints. Past Medical History - Provider Review Nursing Documentation Reviewed: Yes - Infectious Disease Hx of Infectious Diseases: None - Tetanus Immunization Tetanus Immunization: Unknown - Pulmonary Hx Pneumonia: Yes (2016) - Integumentary Hx Dermatological Disorder: No - Musculoskeletal/Rheumatological Hx Falls: No - Gastrointestinal Hx Gastrointestinal Disorders: No - Genitourinary/Gynecological Hx Genitourinary Disorders: No - Psychiatric Hx Substance Use: No - Anesthesia Hx Anesthesia: No Family/Social History - Physician Review Nursing Documentation Reviewed: Yes Family/Social History: Unknown Family HX Smoking Status: Unknown If Ever Smoked Hx Alcohol Use: No Hx Substance Use: No Allergies/Home Meds Allergies/Adverse Reactions: Allergies hair dye Allergy (Uncoded 03/03/17 08:55) RASH Review of Systems - Review of Systems Constitutional: Fatigue. absent: Fevers Eyes: absent: Vision Changes ENT: absent: Hearing Changes Respiratory: Cough, Sputum, Wheezing. absent: SOB Cardiovascular: absent: Chest Pain Gastrointestinal: absent: Abdominal Pain, Diarrhea, Nausea, Vomiting Skin: absent: Rash, Pruritis Neurological: absent: Headache, Dizziness Psychiatric: absent: Anxiety, Depression, Suicidal Ideation Physical Exam - Systems Exam Head: Present: Atraumatic, Normocephalic Pupils: Present: PERRL Extroacular Muscles: Present: EOMI Conjunctiva: Present: Normal Mouth: Present: Moist Mucous Membranes Neck: Present: Normal Range of Motion Respiratory/Chest: Present: Wheezes, Decreased Breath Sounds, Rhonchi, Tachypneic. No: Clear to Auscultation, Good Air Exchange, Respiratory Distress, Accessory Muscle Use, Rales, Retracting, Tender to Palpation Cardiovascular: Present: Regular Rate and Rhythm, Normal S1, S2. No: Murmurs Abdomen: No: Tenderness, Distention, Peritoneal Signs, Rebound, Guarding Back: Present: Normal Inspection. No: CVA Tenderness, Midline Tenderness, Paraspinal Tenderness, Pain with Leg Raise, Decubitus Ulcer Upper Extremity: Present: Normal Inspection. No: Cyanosis, Edema Lower Extremity: Present: Normal Inspection. No: Edema Neurological: Present: GCS=15, CN II-XII Intact, Speech Normal, Motor Func Grossly Intact, Gait Normal, Memory Normal Skin: Present: Warm, Dry, Normal Color. No: Rashes Lymphatic: No: Cervical Adenopathy Psychiatric: Present: Alert, Oriented x 3, Normal Insight, Normal Concentration Medical Decision Making ED Course and Treatment: 04/14/18 10:28 -Labs -CXR -IVF/duoneb/solumedrol -Observe and reassess 04/14/18 11:30 -Wheezing improved, pt. still complaining about unable to breath efficiently, trops ordered with 2 views CXR as the 04/14/18 13:48 -EKG: NSR @ 77 BPM, no ST elevation or depression, no T wave inversion -Labs are non significant -Mg within normal limit -BNP within normal limit -Trop within normal limit -UA show no UTI -initial portal Chest xray show Question of mild CHF, as discussed above. Limited left perihilar/basilar infiltrate not excluded. Consider PA and lateral chest radiography to better characterize cardiac size as cardiomegaly is not excluded in the interval but is not favored given lack of cardiomegaly in chest radiography 02/25/2018. Pt.'s BNP within normal limit, no cardiomegally, no pedal edema. -2 views full chest xray show: Confirmation of lower lobe infiltrates in particular retrocardiac region/left lower lobe. -Pt. feels improving with increase aeration with no retractions, mild rhonchi on the left lower lobe that clear with coughing, coughing excessively when walking , vitally stable, offered and recommend admission for close monitoring with continuous nebulizer solutions and IV antibiotics but she refused initially now she agreed. -Paging Dr. Pugh for admission as patient request. - RAD Interpretation Radiology Orders: Portal chest xray: Date of service: 04/14/2018 HISTORY: coughing and wheezing COMPARISON: Chest radiographs 02/25/2018. FINDINGS: LUNGS: Borderline patchy infiltrate left perihilar and basilar regions. PLEURA: No significant pleural effusion identified, no pneumothorax apparent. CARDIOVASCULAR: No aortic atherosclerotic calcification present. Cardiac silhouette appears prominent but frontal technique may be causing magnification technically. Clinically correlate further as hilar vascular markings appear increased and CHF is question. OSSEOUS STRUCTURES: No significant abnormalities. VISUALIZED UPPER ABDOMEN: Normal. OTHER FINDINGS: None. IMPRESSION: Question of mild CHF, as discussed above. Limited left perihilar/basilar infiltrate not excluded. Consider PA and lateral chest radiography to better characterize cardiac size as cardiomegaly is not excluded in the interval but is not favored given lack of cardiomegaly in chest radiography 02/25/2018. 2 views CXR, post initial portable chest xray: Date of service: 04/14/2018 HISTORY: CHF? cough and wheezing, smoker COMPARISON: 04/14/2018. performed 10:35. TECHNIQUE: Chest PA and lateral FINDINGS: LUNGS: Lower lobe infiltrates left greater than right also seen on the lateral view. PLEURA: No significant pleural effusion identified. No pneumothorax apparent. CARDIOVASCULAR: No aortic atherosclerotic calcification present. Normal cardiac size. No pulmonary vascular congestion. OSSEOUS STRUCTURES: No significant abnormalities. VISUALIZED UPPER ABDOMEN: Normal. OTHER FINDINGS: None. IMPRESSION: Confirmation of lower lobe infiltrates in particular retrocardiac region/left lower lobe. Insulation Foreman: Radiologist - EKG Interpretation EKG Interpretation (Text): 04/14/18 11:38 -EKG: NSR @ 77 BPM, no ST elevation or depression, no T wave inversion Interpreted by ED Physician: Yes Type: 12 lead EKG - PA / TIRE SORTER / Resident Statement /DO has reviewed & agrees with the documentation as recorded. Disposition/Present on Arrival - Present on Arrival Any Indicators Present on Arrival: No History of DVT/PE: No History of Uncontrolled Diabetes: No Urinary Catheter: No History of Decub. Ulcer: No History Surgical Site Infection Following: None - Disposition Have Diagnosis and Disposition been Completed?: Yes Diagnosis: Community acquired pneumonia, Wheezing Disposition: HOSPITALIZED Disposition Time: 13:51 Patient Plan: Telemetry Patient Problems: Current Active Problems Problem Status Onset Community acquired pneumonia Acute Wheezing Acute Condition: STABLE
[2018-04-14] MEDS ORDERED: Sodium Chloride 0.9% 500 ML IV STA (10:29)
[2018-04-14] MEDS: Albuterol-Ipratrop 3 mg / 0.5 (3 ml) UD IH SCH ×3 (10:43→11:22)
--- NOTE | 2018-04-14 11:03 | RAD ---
Date of service: 04/14/2018 HISTORY: coughing and wheezing COMPARISON: Chest radiographs 02/25/2018. FINDINGS: LUNGS: Borderline patchy infiltrate left perihilar and basilar regions. PLEURA: No significant pleural effusion identified, no pneumothorax apparent. CARDIOVASCULAR: No aortic atherosclerotic calcification present. Cardiac silhouette appears prominent but frontal technique may be causing magnification technically. Clinically correlate further as hilar vascular markings appear increased and CHF is question. OSSEOUS STRUCTURES: No significant abnormalities. VISUALIZED UPPER ABDOMEN: Normal. OTHER FINDINGS: None. IMPRESSION: Question of mild CHF, as discussed above. Limited left perihilar/basilar infiltrate not excluded. Consider PA and lateral chest radiography to better characterize cardiac size as cardiomegaly is not excluded in the interval but is not favored given lack of cardiomegaly in chest radiography 02/25/2018.
[2018-04-14 11:06] LABS: BASO # 0.01 K/mm3 (0.0-2.0); BASO % 0.2 % (0.0-3.0); EOS # 0.1 (0.0-0.7); GRAN # 2.9 (1.4-6.5); GRAN % 60.6 % (50.0-68.0); HEMOGLOBIN 12.5 g/dL (12.0-16.0); LYMPH # 1.4 (1.2-3.4); LYMPH % 28.6 % (22.0-35.0); MEAN CELL VOLUME 98.4 fl (80.0-105.0); MEAN CORPUSCULAR HEMOGLOBIN 32.6 pg (25.0-35.0); MEAN CORPUSCULAR HGB CONC 33.1 g/dl (31.0-37.0); MONO # 0.5 (0.1-0.6); MONO % 9.6 % (1.0-6.0); RBC 3.84 10^6/uL (3.5-6.1); RED CELL DISTRIBUTION WIDTH 13.3 % (11.5-14.5); WHITE BLOOD COUNT 4.8 10^3/uL (4.5-11.0)
[2018-04-14 11:10] LABS: URINE BILIRUBIN NEGATIVE (NEGATIVE); URINE BLOOD NEGATIVE (NEGATIVE); URINE GLUCOSE (UA) NEGATIVE (NEGATIVE); URINE LEUKOCYTE ESTERASE NEGATIVE Leu/uL (NEGATIVE); URINE PROTEIN NEGATIVE mg/dL (<30 mg/dL)
[2018-04-14 11:12] LABS: URINE APPEARANCE CLEAR (CLEAR); URINE COLOR LIGHT YELLOW (YELLOW)
[2018-04-14 11:20] LABS: ALBUMIN 4.1 g/dL (3.0-4.8); ALT/SGPT 32 U/L (7-56); AST/SGOT 30 U/L (14-36); BLOOD UREA NITROGEN 10 mg/dL (7-21); GFR NON-AFRICAN AMERICAN > 60
[2018-04-14 11:51] LABS: B-TYPE NATRIURETIC PEPTIDE 93.3 pg/mL (0-450); TROPONIN I < 0.01 ng/mL
--- NOTE | 2018-04-14 13:17 | RAD ---
Date of service: 04/14/2018 HISTORY: CHF? cough and wheezing, smoker COMPARISON: 04/14/2018. performed 10:35. TECHNIQUE: Chest PA and lateral FINDINGS: LUNGS: Lower lobe infiltrates left greater than right also seen on the lateral view. PLEURA: No significant pleural effusion identified. No pneumothorax apparent. CARDIOVASCULAR: No aortic atherosclerotic calcification present. Normal cardiac size. No pulmonary vascular congestion. OSSEOUS STRUCTURES: No significant abnormalities. VISUALIZED UPPER ABDOMEN: Normal. OTHER FINDINGS: None. IMPRESSION: Confirmation of lower lobe infiltrates in particular retrocardiac region/left lower lobe.
[2018-04-14] MEDS ORDERED: Azithromycin 500MG/NS 250ml 500 MG/250 ML BAG IVPB STA (13:28)
[2018-04-14] MEDS ORDERED: cefTRIAXone 1 gm 1 GM/100 ML BAG IVPB STA (13:28)
[2018-04-14] MEDS ORDERED: Albuterol 0.083% Inhal Sol (2.5 mg/3 mL) UD INH STA (13:29)
[2018-04-14] MEDS ORDERED: Albuterol-Ipratrop 3 mg / 0.5 (3 ml) UD IH STA (13:49)
[2018-04-14] MEDS: Sodium Chloride 0.9% 1,000 ML IV SCH (14:03)
[2018-04-14] MEDS ORDERED: Iodixanol 320 MG/ML 100 ML BOTTLE IV ONE (18:55)
--- NOTE | 2018-04-14 18:56 | CARD ---
APPROVED REPORT Date of service: 04/14/2018 EKG Measurement Heart [id number] <Conclusion> Normal sinus rhythm Normal ECG
[2018-04-15 00:04] VITALS: BMI 36.0
--- NOTE | 2018-04-15 00:43 | HP ---
DATE OF EXAM: 04/14/2018 The patient was seen and examined at the bedside in the emergency room on 04/14/2018. CHIEF COMPLAINT: Shortness of breath, coughing. HISTORY OF PRESENT ILLNESS: Ms. Lola Rojas, 53-year-old female, with past medical history of bronchitis, pneumonia, postmenopausal, came complaining about coughing, wheezing, fever started last night. The patient says that she had been coughing associated with wheezing and with a fever last night. Objective; temperature afebrile in the ER, with no antibiotic taken for the past 8 hours. No recent travel. No night sweats. No dizziness. No changes of vision. No altered mental status. No hematuria or hematochezia. We admitted the patient. Discussion done with ER physician. CAT scan of the chest ordered; results are still pending. PAST MEDICAL HISTORY: Pneumonia. FAMILY HISTORY: Father and mother noncontributory. HABITS: Smoking, denied. Alcohol, no. Drugs, no. ALLERGIES: THE PATIENT IS ALLERGIC WITH HAIR DYE COLOR, GIVING RASH. REVIEW OF SYSTEMS: The patient was seen in the ER, having fatigue, fever. No vision change. No hearing change. Coughing with sputum production, wheezing. No chest pain. No abdominal pain, diarrhea, nausea, vomiting. No rash. No headache, dizziness. No anxiety, depression, suicidal ideation. PHYSICAL EXAMINATION VITAL SIGNS: Temperature 98.5, pulse 87, blood pressure 128/87, respiratory rate 18. HEENT: Head: Normocephalic, atraumatic. Eyes: PERRLA. Extraocular muscles are intact. Conjunctivae clear. Nose patent. Mucous membranes moist. NECK: Supple. No carotid bruit. No JVD or thyromegaly. CHEST: Bilaterally symmetrical. HEART: S1 and S2, positive. LUNGS: Positive wheezing bilaterally. ABDOMEN: Soft. Bowel sounds present. No organomegaly. EXTREMITIES: No edema. No cyanosis. NEUROLOGIC: The patient is awake and alert. Moving all 4 extremities. No focal deficit. LABORATORY DATA: White blood cells 4.8, hemoglobin 12.5, hematocrit 37.8, platelets 236. Sodium 141, potassium 3.9, BUN 10, creatinine 0.9, glucose 96. ASSESSMENT AND PLAN: Ms. Lola Rojas, 53-year-old lady, with hyperchloremia, low anion gap, hypoproteinemia, history of pneumonia, came with fever and chills and coughing. Chest x-ray done showed lower lobe infiltrate, particularly retrocardiac region, left lower lobe. Will get antibiotics. Will get better. Pulmonary consult called with Dr. Yo. Started on NS, albuterol, methylprednisolone, Zithromax given. Angio chest done; results are pending. Repeat labs. We will follow up. Sameera Pugh MD
[2018-04-15] MEDS: Albuterol-Ipratrop 3 mg / 0.5 (3 ml) UD IH SCH ×4 (01:30→20:10)
[2018-04-15 06:59] LABS: BLOOD UREA NITROGEN 9 mg/dL (7-21); CALCIUM 8.9 mg/dL (8.4-10.5); GFR NON-AFRICAN AMERICAN > 60; HDL CHOLESTEROL 38 mg/dL (29-60)
[2018-04-15 07:09] LABS: LDL CHOLESTEROL 109 mg/dL (0-129)
[2018-04-15 07:13] LABS: HEMOGLOBIN 11.5 g/dL (12.0-16.0); MEAN CELL VOLUME 96.9 fl (80.0-105.0); MEAN CORPUSCULAR HEMOGLOBIN 32.1 pg (25.0-35.0); MEAN CORPUSCULAR HGB CONC 33.1 g/dl (31.0-37.0); MEAN PLATELET VOLUME 10.9 fl (7.0-11.0); RBC 3.58 10^6/uL (3.5-6.1); RED CELL DISTRIBUTION WIDTH 13.1 % (11.5-14.5); WHITE BLOOD COUNT 6.8 10^3/uL (4.5-11.0)
[2018-04-15 07:14] LABS: IRON 36 ug/dL (45-180)
[2018-04-15 07:23] LABS: % IRON SATURATION 11 % (20-55); TOTAL IRON BINDING CAPACITY 332 ug/dL (265-497)
--- NOTE | 2018-04-15 08:36 | CT ---
Date of service: 04/14/2018 PROCEDURE: CT Chest with contrast (Pulmonary Angiogram) HISTORY: persistent wheezing/cough COMPARISON: None available. TECHNIQUE: Axial computed tomography images were obtained of the chest in the pulmonary arterial phase of enhancement. Coronal and sagittal reformatted images were created and reviewed. Intravenous contrast dose: Radiation dose: Total exam DLP = 404.48 mGy-cm. This CT exam was performed using one or more of the following dose reduction techniques: Automated exposure control, adjustment of the mA and/or kV according to patient size, and/or use of iterative reconstruction technique. FINDINGS: PULMONARY ARTERIES: Unremarkable. No pulmonary embolism. AORTA: No acute findings. No thoracic aortic aneurysm. No aortic atherosclerotic calcification or mural plaque present. LUNGS: Bilateral perihilar interstitial infiltrates. Small bibasilar subpleural infiltrates. PLEURAL SPACES: Unremarkable. No effusion or pneumothorax. HEART: Unremarkable. No cardiomegaly. No significant pericardial effusion. LYMPH NODES: Bilateral hilar lymphadenopathy. BONES, CHEST WALL: Unremarkable. No fracture or destructive lesion OTHER FINDINGS: Nonspecific 1 centimeter nodule in the left lobe of the thyroid gland. Left hepatic cyst. IMPRESSION: No pulmonary embolism. Bilateral perihilar infiltrates with small subpleural infiltrates in the lung bases. Bilateral hilar lymphadenopathy. Nonspecific 1 centimeter nodule in the left lobe of the thyroid gland. Left hepatic cyst.
[2018-04-15] MEDS: Azithromycin 500MG/NS 250ml 500 MG/250 ML BAG IVPB SCH (09:57)
[2018-04-15] MEDS ORDERED: Azithromycin 500 MG in Sodium Chloride 0.9% 250 ML IVPB SCH (10:00)
[2018-04-15] MEDS ORDERED: cefTRIAXone 1 gm 1 GM/100 ML BAG IVPB SCH (10:00)
--- NOTE | 2018-04-15 12:32 | CON ---
PULMONARY CONSULT NOTE DATE: 04/15/2018 REFERRING PHYSICIAN: Sameera Pugh MD REASON FOR CONSULT: Shortness of breath, coughing, and wheezing. HISTORY OF PRESENT ILLNESS: This is a 53-year-old female with past medical history of bronchitis, pneumonia, who is postmenopausal. IN THE PAST HAD ALLERGIC REACTION WITH LARYNGEAL EDEMA TO HAIR COLOR OR HAIR DYE. This patient is known to us from previous admission, did not followup in office, was noncompliant with treatment recommendation. Today, she presents with shortness of breath, wheezing, and coughing. PAST MEDICAL HISTORY: As mentioned above in the HPI. ALLERGIES: SHE IS ALLERGIC TO HAIR DYE. SOCIAL HISTORY: Denies smoking, no ETOH abuse, and no illicit drug use. FAMILY HISTORY: Positive for diabetes and hypertension. MEDICATIONS: Tylenol 650 mg p.o. every 4 hours as needed for fever, DuoNeb 3 mL inhalation every 6 hours, Zithromax 500 mg daily, Rocephin 1 gram daily, Pepcid 40 mg at bedtime, Solu-Medrol 60 mg every 8 hours and sodium chloride 0.9% at 70 mL per hour. REVIEW OF SYSTEMS: No headache, no rhinitis, chest pain, abdominal pain, nausea, vomiting, diarrhea, dysuria, leg pain or leg swelling reported. The patient does report cough and shortness of breath. PHYSICAL EXAMINATION VITAL SIGNS: Blood pressure 136/81, pulse 74, temperature 97.8, and oxygen saturation 95% on 3 liters. GENERAL: Lying in bed, tachypneic. HEENT: Moist mucus membranes. Crowded airway. Mallampati score of 4. NECK: No stridor. Supple. No JVD. CHEST: Prolonged respiratory phase. Crackles bilaterally. Expiratory wheezing bilaterally. CARDIOVASCULAR: S1 and S2 audible. ABDOMEN: Soft and nontender. No distention. No organomegaly. EXTREMITIES: No bilateral lower extremity edema. NEUROLOGICAL: Awake, alert, verbal, and follows simple commands. LABORATORY DATA: Reviewed. WBC 6.8, RBC 3.58, hemoglobin 11.5, hematocrit 34.7, and platelets 251. Sodium 139, potassium 3.9, chloride 111, carbon dioxide 23, anion gap 10, BUN 9, creatinine 0.6, GFR greater than 60, random glucose 125 and calcium 8.9. ProBNP 93.3 and troponin less then 0.01. Triglycerides 48, cholesterol 171, LDL cholesterol 109 and HDL cholesterol 39. TSH 17. Urinalysis urobilinogen. DIAGNOSTIC DATA: Chest CT; no pulmonary embolism, bilateral perihilar infiltrates with small subpleural infiltrates in the lung bases, bilateral hilar lymphadenopathy, nonspecific 1 cm nodule in the left lobe of the thyroid gland, left hepatic cyst. Chest x-ray, conformation of lower lobe infiltrates in particular retrocardiac region left lower lobe. Electrocardiogram, normal sinus rhythm. IMPRESSION AND PLAN: Exacerbation of chronic obstructive lung disease, we will need further CT scan to followup on infiltrates. No objective fever noted; although, it is reported the patient did have a fever prior to coming to the emergency room. WBCs are presently normal. We will get procalcitonin level in the morning. We will do echocardiogram today due to hilar infiltrates, which can be suggestive of heart failure. We will add Pulmicort and Tessalon Perles for coughs, BiPAP at bedtime, lyrica 25mg BID for cough, Lovenox for DVT prophylaxis. We do suspect some component of sleep apnea syndrome. Sleep apnea precaution, head of bed elevated at 45 degrees, gastric prophylaxis, deep vein thrombosis prophylaxis and continue intervenous Solu-Medrol. Once outpatient we recommend full pulmonary function test and sleep study. This patient was seen and examined with Dr. Yo. Discussed assessment and plan as described above. Thank you for this consult and we will follow with you. Dillon Gillespie APN Malena Yo MD [facility]
[2018-04-15 13:15] LABS: FOLATE 9.7 ng/mL
[2018-04-15] MEDS: Sodium Chloride 0.9% 1,000 ML IV SCH ×2 (13:30→18:44)
[2018-04-15 16:14] VITALS: TEMP 98
[2018-04-15] MEDS: Acetylcysteine 20% Inhal Soln (4ml) IH SCH (20:10)
[2018-04-15] MEDS: Budesonide 0.5 mg/2 ml Inhal Susp UD IH SCH (20:11)
[2018-04-16] MEDS: Albuterol-Ipratrop 3 mg / 0.5 (3 ml) UD IH SCH ×4 (01:29→19:53)
--- NOTE | 2018-04-16 04:21 | PN ---
DATE: 04/15/2018 SUBJECTIVE: The patient is a 53-year-old male. The patient was seen and examined at the bedside on 04/15/2018. Feeling better. Still coughing, but less shortness of breath, but still wheezing. No headache. No abdominal pain. No nausea, vomiting, or diarrhea. No seizures. No swelling of the legs. No chest pain. No palpitation. PHYSICAL EXAMINATION: VITAL SIGNS: Temperature 98.6, blood pressure 130/80, pulse 70, respiratory rate 20, oxygenation 95% on 3 L nasal cannula. HEENT: Head: Normocephalic and atraumatic. Eyes: PERRLA. Extraocular muscles are intact. Conjunctivae clear. Nose patent. Mucous membranes moist. NECK: Supple. No carotid bruits, JVD, or thyromegaly. CHEST: Prolonged expiratory phase, crackles bilaterally, expiratory wheezing bilaterally. HEART: S1 and S2 positive. ABDOMEN: Soft. Bowel sounds present. No organomegaly. EXTREMITIES: Bilateral lower extremities, no cyanosis, no edema. NEUROLOGIC: Awake and alert. Follow simple commands. Moving all four extremities. LABORATORY DATA: White blood cells 6.8, hemoglobin 11.5, hematocrit 34.7, platelets 251. Sodium 139, potassium 3.9, BUN 9, creatinine 0.6, glucose 125. ProBNP 93.9. Triglycerides 48, cholesterol 171. TSH 17. ASSESSMENT AND PLAN: Ms. Lola Rojas is a 53-year-old female, came with exacerbation of chronic obstructive lung disease. Has hilar infiltrates, rule out congestive heart failure. Pulmicort and Tessalon Perles. Bilevel positive airway pressure at night. Lyrica is started. Lovenox for the deep venous thrombosis prophylaxis. Sleep apnea syndrome. The patient is getting Solu-Medrol. The patient has a history of bronchitis and pneumonia. As outpatient, the patient is very noncompliant. Anemia, hyperchloremia, hyperglycemia, prediabetic. Hemoglobin A1c is 5.7. Iron deficiency. Rule out hyperthyroidism. Appreciated Dr. Yo's input. Gastrointestinal and deep venous thrombosis prophylaxis. Repeat labs. We will follow. Sameera Pugh MD
[2018-04-16] MEDS: Acetylcysteine 20% Inhal Soln (4ml) IH SCH ×2 (08:31→19:53)
[2018-04-16] MEDS: Budesonide 0.5 mg/2 ml Inhal Susp UD IH SCH ×2 (08:31→19:53)
[2018-04-16 09:03] VITALS: BP 134/95; RESP 20; O2SAT 93
[2018-04-16] MEDS: Cefpodoxime (Vantin) 200 mg Tab PO SCH ×2 (10:26→21:10)
[2018-04-16] MEDS: Enoxaparin 40 mg Syringe SC SCH (10:26)
[2018-04-16] MEDS: Azithromycin 500MG/NS 250ml 500 MG/250 ML BAG IVPB SCH (10:26)
--- NOTE | 2018-04-16 10:41 | CARD ---
APPROVED REPORT Date of service: 04/16/2018 EXAM: Two-dimensional and M-mode echocardiogram with Doppler and color Doppler. INDICATION EVALUATE HEART FAILURE 2D DIMENSIONS Left Atrium (2D)4.3 (1.6-4.0cm)IVSd1.1 (0.7-1.1cm) LVDd5.9 (3.9-5.9cm)PWd1.1 (0.7-1.1cm) LVDs4.1 (2.5-4.0cm)FS (%) 31.5 % LVEF (%)58.6 (>50%) M-Mode DIMENSIONS Aortic Root2.70 (2.2-3.7cm)Aortic Cusp Exc.2.00 (1.5-2.0cm) Aortic Valve AoV Peak Kawmkoxl087.0cm/Rosie Peak GR.17mmHg Mitral Valve MV E Otyylhkx498.0cm/sMV A Qictwfpb55.1cm/sE/A ratio2.2 TDI E/Lateral E'0.0E/Medial E'0.0 Tricuspid Valve TR Peak [id number]/sRAP [id number] Peak Gr.31mmHg [id number] LEFT VENTRICLE The left ventricle is normal size. There is normal left ventricular wall thickness. The left ventricular function is normal. The left ventricular ejection fraction is within the normal range. There is normal LV segmental wall motion. The left ventricular diastolic function is normal. RIGHT VENTRICLE The right ventricle is normal size. There is normal right ventricular wall thickness. The right ventricular systolic function is normal. ATRIA The left atrium is mildly dilated. The right atrium size is normal. AORTIC VALVE The aortic valve is normal in structure. No aortic regurgitation is present. There is no aortic valvular stenosis. MITRAL VALVE The mitral valve is normal in structure. There is no mitral valve regurgitation noted. There is no mitral valve stenosis. TRICUSPID VALVE There is mild tricuspid regurgitation. There is mild pulmonary hypertension. PULMONIC VALVE There is trace pulmonic valvular regurgitation. GREAT VESSELS The aortic root is normal in size. PERICARDIAL EFFUSION There is no pericardial effusion. <Conclusion> There is normal left ventricular wall thickness. The left ventricular function is normal. The left ventricular ejection fraction is within the normal range. There is normal LV segmental wall motion. The left ventricular diastolic function is normal. There is mild tricuspid regurgitation. There is mild pulmonary hypertension.
--- NOTE | 2018-04-16 12:47 | PN ---
PULMONARY PROGRESS NOTE DATE: 04/16/2018 REFERRING PHYSICIAN: Sameera Pugh MD SUBJECTIVE: The patient is sitting up in bed, no acute distress noted. Breathing has improved. The patient does report that cough continues on occasion. No headache, rhinitis, chest pain, nausea, vomiting, diarrhea, leg pain, leg swelling reported. The patient does report abdominal pain, reports she had a bowel movement. Does report shortness of breath at times. OBJECTIVE: GENERAL: No acute distress. VITAL SIGNS: Blood pressure 134/95, pulse 65, temperature 98, and oxygen saturation 93%. HEENT: Moist mucous membranes. NECK: Supple. No JVD. CARDIOVASCULAR: S1 and S2 audible. LUNGS: Prolonged expiratory phase. Bilateral crackles at the bases. Expiratory wheezing bilaterally. ABDOMEN: Soft, tender on bilateral lower quadrants. Bowel sounds present. No organomegaly. EXTREMITIES: No edema, bilateral lower extremities. NEUROLOGIC: Awake, alert, verbal and follows commands. LABORATORY DATA: Reviewed. No new labs. DIAGNOSTIC DATA: Echocardiogram; LV ejection fraction 58.6, RVSP 41, there is normal left ventricular wall thickness, the left ventricular function is normal, the left ventricular ejection fraction is within the normal range, there is normal LV segmental wall motion. The left ventricular diastolic function is normal. There is mild tricuspid regurgitation. There is mild pulmonary hypertension. MEDICATIONS: Reviewed. Tylenol 650 mg every 4 hours p.r.n. for pain and fever, Mucomyst 4 mL inhalation twice a day, DuoNeb 3 mL inhalation every 6 hours, Zithromax 5 mg daily, Tessalon Perles 100 mg 3 times a day, Pulmicort 0.5 mg every 12, Dilantin 200 mg every 12, Lovenox 40 mg subcu daily, Pepcid 40 mg at bedtime, Solu-Medrol 60 mg every 8 hours and Lyrica 25 mg twice a day. IMPRESSION AND PLAN: Exacerbation of chronic obstructive lung disease, the patient has hilar infiltrates, procalcitonin level pending, pulmonary hypertension, has some component of diastolic dysfunction. Continue gastric prophylaxis, inhaled bronchodilators, continue Lyrica and Tessalon Perles for cough, inhaled steroids, deep venous thrombosis prophylaxis. The patient has suspected sleep apnea syndrome, continue bilevel positive airway pressure use at bedtime, head of bed elevated at 45 degrees, sleep apnea precautions, continue IV steroids. We will get obstructive series today. We recommend this patient have full pulmonary function test and sleep study as outpatient. This patient was seen and examined with Dr. Yo. Discussed assessment and plan as described above. Thank you for this consult, and we will follow with you. Dillon Gillespie APN Malena Yo MD
--- NOTE | 2018-04-16 14:25 | RAD ---
Date of service: 04/16/2018 HISTORY: rule out obstruction COMPARISON: None available. FINDINGS: BOWEL: Small bowel loops are normal in caliber. There is moderate of stool in the ascending and transverse colon there is no bowel dilatation or free intraperitoneal air. BONES: Normal. OTHER FINDINGS: None. IMPRESSION: Moderate stool burden in the colon. Nonspecific nonobstructive bowel gas pattern.
[2018-04-16] MEDS ORDERED: Magnesium Hydroxide Susp 30 ml UD PO ONE (17:07)
--- NOTE | 2018-04-16 23:33 | PN ---
DATE: 04/16/2018 SUBJECTIVE: The patient is a 53-year-old female. The patient was seen and examined at the bedside on 04/16/2018, looking comfortable. Cough is better. Shortness of breath is better. No fever. No chills. No nausea, vomiting, diarrhea. No hematuria or hematochezia. No headache. No dizziness. PHYSICAL EXAMINATION VITAL SIGNS: Temperature 98.6, blood pressure 130/90, pulse 55, respiratory rate 18, oxygenation is 93%. HEENT: Head: Normocephalic, atraumatic. Eyes: PERRLA. Extraocular muscles are intact. Conjunctivae clear. Nose patent. Mucous membranes moist. NECK: Supple. No carotid bruit. No JVD or thyromegaly. CHEST: Bilaterally symmetrical. HEART: S1 and S2, positive. LUNGS: Clear to auscultation. ABDOMEN: Soft. Bowel sounds present. No organomegaly. EXTREMITIES: No edema. No cyanosis. NEUROLOGICAL: The patient is awake and alert. Follows simple commands. LABORATORY DATA: We do not have recent labs today, but I reviewed old labs. MEDICATIONS: Acetylcysteine, DuoNeb, Lovenox, Lyrica, Pepcid, Pulmicort, Solu-Medrol, benzoate, Tylenol, Zithromax. ASSESSMENT AND PLAN: Ms. Lola Rojas is a 53-year-old female with anemia, hyperchloremia, hyperglycemia, iron deficiency, came with exacerbation of chronic obstructive lung disease. The patient has hilar infiltrates. Prolactin level pending. Pulmonary hypertension, has some component of diastolic dysfunction. Continue gastric prophylaxis, inhaled bronchodilators. Continue Lyrica and Tessalon Perles. Echocardiography done shows ejection fraction of 58.6%, mild tricuspid regurgitation. Discussion done with the patient and nursing staff. Abdomen x-ray is done according to Dr. Keely Fletcher; moderate stool burden in the colon, nonspecific, nonobstructive bowel gas pattern. She is seen by Dr. Yo. Gastrointestinal and deep venous thrombosis prophylaxis. Repeat labs. We will follow up. Sameera Pugh MD [facility] # [id number]
[2018-04-16 23:40] VITALS: PULSE 52
[2018-04-17] MEDS: Albuterol-Ipratrop 3 mg / 0.5 (3 ml) UD IH SCH ×3 (01:15→13:14)
[2018-04-17 06:42] LABS: GRAN # 7.66 (1.4-6.5); LYMPH # 1.3 (1.2-3.4); LYMPH % 13.5 % (22.0-35.0); MEAN CELL VOLUME 97.2 fl (80.0-105.0); MEAN CORPUSCULAR HEMOGLOBIN 31.1 pg (25.0-35.0); MONO # 0.5 (0.1-0.6); MONO % 5.5 % (1.0-6.0); RBC 3.54 10^6/uL (3.5-6.1); RED CELL DISTRIBUTION WIDTH 13.2 % (11.5-14.5); WHITE BLOOD COUNT 9.5 10^3/uL (4.5-11.0)
[2018-04-17 07:26] LABS: ALBUMIN 3.7 g/dL (3.0-4.8); ALT/SGPT 31 U/L (7-56); AST/SGOT 33 U/L (14-36); BLOOD UREA NITROGEN 10 mg/dL (7-21); CALCIUM 8.9 mg/dL (8.4-10.5); GFR NON-AFRICAN AMERICAN > 60
[2018-04-17] MEDS: Budesonide 0.5 mg/2 ml Inhal Susp UD IH SCH (07:57)
[2018-04-17] MEDS: Acetylcysteine 20% Inhal Soln (4ml) IH SCH (08:00)
[2018-04-17] MEDS ORDERED: MethylPREDNISolone 40 mg Vial IVP SCH (10:00)
[2018-04-17] MEDS: Azithromycin 500MG/NS 250ml 500 MG/250 ML BAG IVPB SCH (10:17)
[2018-04-17] MEDS: Enoxaparin 40 mg Syringe SC SCH (10:22)
[2018-04-17] MEDS: Cefpodoxime (Vantin) 200 mg Tab PO SCH (10:22)
--- NOTE | 2018-04-17 12:14 | PN ---
PULMONARY PROGRESS NOTE DATE: 04/17/2018 REFERRING PHYSICIAN: Sameera Pugh MD SUBJECTIVE: The patient is sitting up at bedside. No acute distress. No overnight events reporting. Reports shortness of breath and cough is much better. No headache, rhinitis, chest pain, abdominal pain, nausea, vomiting, diarrhea, leg pain or leg swelling reported. The patient does report having large bowel movement last night. OBJECTIVE: GENERAL: No acute distress. VITAL SIGNS: Blood pressure 134/95, pulse 65, temperature 98. HEENT: Moist mucous membranes. Mallampati score of 4. NECK: Supple. No JVD. CARDIOPULMONARY: S1 and S2 audible. LUNGS: No audible wheezing. Prolonged expiratory phase. ABDOMEN: Soft and nontender. No distention. No organomegaly. Bowel sounds present. EXTREMITIES: No bilateral lower extremity edema. NEUROLOGIC: Awake, alert, verbal and follows commands. LABORATORY DATA: Reviewed. WBC 9.5, RBC 3.54, hemoglobin 11, hematocrit 34.4, and platelets 262. Sodium 140, potassium 4.4, chloride 109, carbon dioxide 25, anion gap 12, BUN 10, creatinine 0.6, GFR greater than 60, random glucose 112 and calcium 8.9. Total bilirubin 0.2, AST 33, ALT 31, alkaline phosphatase 68, total protein 7.6, albumin 3.7, globulin 3.9 and albumin globulin ratio 1.0. Procalcitonin 0.07. Abdominal x-ray showed moderate stool burden in the colon, nonspecific, nonobstructive bowel gas pattern. MEDICATIONS: Reviewed. Tylenol 650 mg every 4 hours p.r.n., Mucomyst 4 mL inhalation twice a day, DuoNeb 3 mL inhalation every 6 hours, Zithromax 500 mg daily, Tessalon Perles 100 mg 3 times a day, Pulmicort 0.5 mg inhalation every 12 hours, 200 mg p.o. every 12 hours, Lovenox 40 mg subcutaneous daily, Pepcid 40 mg p.o. at bedtime, Solu-Medrol 40 mg IV push every 12 hours and Lyrica 25 mg p.o. twice a day. IMPRESSION AND PLAN: Exacerbation of chronic obstructive lung disease, pulmonary hypertension. The patient has some component of diastolic dysfunction, doing much better today. Discussed with nursing staff, potential for discharge home today. Continue gastric prophylaxis, inhaled bronchodilators, Lyrica, Tessalon Perles for cough, deep venous thrombosis prophylaxis. The patient has suspected sleep apnea syndrome, continue bilevel positive airway pressure at bed time, head of bed elevated at 45 degrees, sleep apnea precautions. We recommend that the patient should go home on Medrol Dosepak and continue antibiotics as per Infectious Disease. We recommend the patient have full pulmonary function test and sleep study as outpatient. From Pulmonary standpoint the patient is okay to be discharged home. This patient was seen and examined with Dr. Yo. Discussed assessment and plan as described above. Thank you for this consult and we will follow with you. Dillon Gillespie APN Malena Yo MD [facility]
== END 2018-04-17 14:48 | disposition home or self-care (01) | DRG 192 ==
LOC: ED 10:18 → ERH 14:05 → 3RSO 22:18 → OBSVTOIN 04-15 15:52
PROVIDERS: ADMIT Internal Medicine; ATTEND Internal Medicine
PROC: 5A09357 Assistance with Respiratory Ventilation, Less than 24 Consecutive Hours, Continuous Positive Airway Pressure (ICD-10-PCS; principal; 2018-04-15)
DX: J44.1 Chronic obstructive pulmonary disease with (acute) exacerbation (principal); I27.20 Pulmonary hypertension, unspecified; D50.9 Iron deficiency anemia, unspecified; R73.03 Prediabetes; E87.8 Other disorders of electrolyte and fluid balance, not elsewhere classified; G47.30 Sleep apnea, unspecified; F17.200 Nicotine dependence, unspecified, uncomplicated; I07.1 Rheumatic tricuspid insufficiency; Z87.01 Personal history of pneumonia (recurrent); Z91.19 Patient's noncompliance with other medical treatment and regimen

== ENCOUNTER 2018-08-31 20:42 | Observation (INO) | payer OTHER ==
[2018-08-31 21:10] VITALS: BMI 37.1
--- NOTE | 2018-08-31 22:05 | ED PDOC ---
Arrival/HPI - General Chief Complaint: Female Genitourinary Time Seen by Provider: 08/31/18 21:36 Historian: Patient - History of Present Illness Narrative History of Present Illness (Text): 53 year old female, whose past medical history includes asthma, and whose last menstruation was 11 years ago, presents to the emergency department with vaginal bleeding. Patient informs symptoms started 3 days prior, and have been worsen ing. Patient informs initially she needed 1-2 pads a day, and today it is 7-9 pads. Patient denies any trauma, fall, or recent sexual activity. Patient denies any urinary symptoms, melena or hematochezia, rash, chest pain, shortness of breath, or any other complaint. Time/Duration: < week Symptom Onset: Gradual Symptom Course: Worsening Activities at Onset: Light Context: Home Past Medical History - Provider Review Nursing Documentation Reviewed: Yes - Infectious Disease Hx of Infectious Diseases: None - Tetanus Immunization Tetanus Immunization: Unknown - Pulmonary Hx Bronchitis: Yes Hx Pneumonia: Yes - Integumentary Hx Dermatological Disorder: No - Musculoskeletal/Rheumatological Hx Falls: No - Gastrointestinal Hx Gastrointestinal Disorders: No - Genitourinary/Gynecological Hx Genitourinary Disorders: No - Psychiatric Hx Substance Use: No - Surgical History Hx Section: Yes - Anesthesia Hx Anesthesia: Yes Hx Anesthesia Reactions: No Hx Malignant Hyperthermia: No Family/Social History - Physician Review Nursing Documentation Reviewed: Yes Family/Social History: No Known Family HX Smoking Status: Never Smoked Hx Alcohol Use: No Hx Substance Use: No Allergies/Home Meds Allergies/Adverse Reactions: Allergies hair dye Allergy (Uncoded 08/31/18 21:09) RASH Review of Systems - Physician Review All systems were reviewed & negative as marked: Yes - Review of Systems Constitutional: Normal. absent: Fevers, Night Sweats Eyes: Normal. absent: Vision Changes, Photophobia ENT: Normal. absent: Hearing Changes Respiratory: absent: SOB Cardiovascular: absent: Chest Pain Gastrointestinal: absent: Abdominal Pain Genitourinary Female: Vaginal Bleeding. absent: Dysuria, Frequency, Urine Output Changes Musculoskeletal: Normal. absent: Arthralgias, Back Pain, Neck Pain Skin: Normal. absent: Rash Neurological: Normal. absent: Headache, Dizziness Endocrine: Normal Hemo/Lymphatic: Normal Psychiatric: Normal. absent: Anxiety, Depression Physical Exam Vital Signs Reviewed: Yes Vital Signs Temp Pulse Resp BP Pulse Ox 08/31/18 21:21 98.1 F 72 18 119/78 99 Temperature: Afebrile Blood Pressure: Normal Pulse: Regular Respiratory Rate: Normal Appearance: Positive for: Well-Appearing, Non-Toxic, Comfortable Pain Distress: None Mental Status: Positive for: Alert and Oriented X 3 - Systems Exam Head: Present: Atraumatic, Normocephalic Pupils: Present: PERRL Extroacular Muscles: Present: EOMI Conjunctiva: Present: Normal Mouth: Present: Moist Mucous Membranes Neck: Present: Normal Range of Motion. No: Meningeal Signs, MIDLINE TENDERNESS Respiratory/Chest: Present: Clear to Auscultation, Good Air Exchange. No: Respiratory Distress, Accessory Muscle Use Cardiovascular: Present: Regular Rate and Rhythm, Normal S1, S2. No: Murmurs Abdomen: Present: Tenderness (Suprapubic tenderness), Normal Bowel Sounds. No: Distention, Peritoneal Signs Back: Present: Normal Inspection. No: CVA Tenderness, Midline Tenderness Upper Extremity: Present: Normal Inspection. No: Cyanosis, Edema Lower Extremity: Present: Normal Inspection. No: Edema Neurological: Present: GCS=15, CN II-XII Intact, Speech Normal Skin: Present: Warm, Dry, Normal Color. No: Rashes Psychiatric: Present: Alert, Oriented x 3, Normal Insight, Normal Concentration Medical Decision Making ED Course and Treatment: 08/31/18 22:07 Impression: 53 year old female presents with vaginal bleeding. LMP 11 years prior. ?Mass vs endometrial CA. Will seek imaging and labs. Differential Diagnosis included but are not limited to: Vaginal Bleeding Anemia Plan: -- Type and Screen -- CT ABD & Pelvis -- CMP, Lipase -- CBC, Platelets -- POC -- US Transvaginal -- Reassess and disposition Prior Visits: Notes and results from previous visits were reviewed. Progress Notes: 09/01/18 01:03 H&H unremarkable Pelvic mass vs polyp per CT No mention on US Pelvic exam done w/ tech chaperoning: No bleeding from cervix noted. Mass noted to vaginal wall/cervix,no appreciable venous ooze or arterial bleed noted pt notes continued pain, morphine ordered endorsed to Dr. Pugh: we are to admit to her service pt in NAD, agreeable to plan - RAD Interpretation Radiology Orders: 08/31/18 21:44 ABD & PELVIS IV CONTRAST ONLY [CT] Stat TRANSVAGINAL [US] Stat - Scribe Statement The provider has reviewed the documentation as recorded by the Jewelibe Alex Dow Provider Scribe Attestation: All medical record entries made by the Jewelibleobardo were at my direction and personally dictated by me. I have reviewed the chart and agree that the record accurately reflects my personal performance of the history, physical exam, medical decision making, and the department course for this patient. I have also personally directed, reviewed, and agree with the discharge instructions and disposition. Disposition/Present on Arrival - Present on Arrival Any Indicators Present on Arrival: No History of DVT/PE: No History of Uncontrolled Diabetes: No Urinary Catheter: No History of Decub. Ulcer: No History Surgical Site Infection Following: None - Disposition Have Diagnosis and Disposition been Completed?: Yes Diagnosis: Pelvic mass, Vaginal bleeding Disposition: HOSPITALIZED Disposition Time: 01:03 Patient Problems: Current Active Problems Problem Status Onset Pelvic mass Acute Vaginal bleeding Acute Condition: STABLE
[2018-08-31 22:30] LABS: BASO # 0.01 K/mm3 (0.0-2.0); BASO % 0.2 % (0.0-3.0); EOS # 0.1 (0.0-0.7); EOS % 1.1 % (1.5-5.0); HEMOGLOBIN 11.5 g/dL (12.0-16.0); LYMPH # 2.7 (1.2-3.4); LYMPH % 50.4 % (22.0-35.0); MEAN CELL VOLUME 97.5 fl (80.0-105.0); MEAN CORPUSCULAR HEMOGLOBIN 31.5 pg (25.0-35.0); MEAN CORPUSCULAR HGB CONC 32.3 g/dl (31.0-37.0); MEAN PLATELET VOLUME 10.1 fl (7.0-11.0); MONO # 0.3 (0.1-0.6); MONO % 5.7 % (1.0-6.0); RBC 3.65 10^6/uL (3.5-6.1); RED CELL DISTRIBUTION WIDTH 13.1 % (11.5-14.5); WHITE BLOOD COUNT 5.4 10^3/uL (4.5-11.0)
[2018-08-31 22:38] LABS: ALBUMIN 3.8 g/dL (3.0-4.8); ALT/SGPT 16 U/L (7-56); AST/SGOT 24 U/L (14-36); BLOOD UREA NITROGEN 10 mg/dL (7-21); CALCIUM 8.8 mg/dL (8.4-10.5); GFR NON-AFRICAN AMERICAN > 60; INR 0.98; LIPASE 177 U/L (23-300); PARTIAL THROMBOPLASTIN TIME 31.4 Seconds (26.9-38.3); PROTHROMBIN TIME 10.9 SECONDS (9.4-12.5)
[2018-08-31] MEDS ORDERED: Iohexol 350 MG/100 ML VIAL ONE (22:48)
[2018-09-01] MEDS ORDERED: Morphine 4 mg/ml ISec IVP STA (01:01)
[2018-09-01] MEDS ORDERED: Albuterol-Ipratrop 3 mg / 0.5 (3 ml) UD IH PRN ×2 (02:44→06:53)
[2018-09-01] MEDS ORDERED: Morphine 2 mg/ml ISec IVP ONE (04:36)
[2018-09-01] MEDS: Arformoterol 15 mcg/2 ml Inh Sol IH SCH ×2 (07:49→20:23)
[2018-09-01] MEDS: Budesonide 0.5 mg/2 ml Inhal Susp UD IH SCH ×2 (07:49→20:23)
[2018-09-01] MEDS ORDERED: Arformoterol 15 mcg/2 ml Inh Sol IH SCH (08:00)
--- NOTE | 2018-09-01 08:13 | CT ---
Date of service: 08/31/2018 PROCEDURE: CT Abdomen and Pelvis with contrast HISTORY: vag bleed, suprapubic pain, LMP 11 yrs ago COMPARISON: None. TECHNIQUE: Contrast dose: Radiation dose: Total exam DLP = 1189.48 mGy-cm. This CT exam was performed using one or more of the following dose reduction techniques: Automated exposure control, adjustment of the mA and/or kV according to patient size, and/or use of iterative reconstruction technique. FINDINGS: LOWER THORAX: Unremarkable. LIVER: Unremarkable. No gross lesion or ductal dilatation. There is a 2 cm simple cyst in the left lobe GALLBLADDER AND BILE DUCTS: Unremarkable. PANCREAS: Unremarkable. No gross lesion or ductal dilatation. SPLEEN: Unremarkable. ADRENALS: Unremarkable. No mass. KIDNEYS AND URETERS: Unremarkable. No hydronephrosis. No solid mass. VASCULATURE: Unremarkable. No aortic aneurysm. No aortic atherosclerotic calcification or mural plaque present. BOWEL: Unremarkable. No obstruction. No gross mural thickening. APPENDIX: Normal appendix. PERITONEUM: Unremarkable. No free fluid. No free air. LYMPH NODES: Unremarkable. No enlarged lymph nodes. BLADDER: Unremarkable. REPRODUCTIVE: Enlarged hypodense cervix. Underlying mass cannot be excluded. BONES: No acute fracture. OTHER FINDINGS: The report concurs with the preliminary [facility] report IMPRESSION: Enlarged hypodense cervix. Underlying mass cannot be excluded.
[2018-09-01 09:30] LABS: PH,URINE 5.5 (4.7-8.0); URINE APPEARANCE CLEAR (CLEAR); URINE BILIRUBIN NEGATIVE (NEGATIVE); URINE BLOOD LARGE (NEGATIVE); URINE COLOR YELLOW (YELLOW); URINE GLUCOSE (UA) NEGATIVE (NEGATIVE); URINE LEUKOCYTE ESTERASE NEGATIVE Leu/uL (NEGATIVE); URINE PROTEIN NEGATIVE mg/dL (<30 mg/dL); URINE UROBILINOGEN 0.2 E.U./dL (<1 E.U./dL)
[2018-09-01 09:40] LABS: URINE RBC TNTC /hpf (0-2); URINE WBC 0 - 2 /hpf (0-6)
[2018-09-01] MEDS: HYDROmorphone 0.5 mg/0.5 ml ISec IVP PRN ×3 (10:48→22:24)
--- NOTE | 2018-09-01 11:56 | US ---
Date of service: 08/31/2018 HISTORY: vag bleed COMPARISON: Abdomen pelvis CT with contrast 05/13/2017. TECHNIQUE: Transabdominal and transvaginal pelvic ultrasound was performed with longitudinal and transverse images submitted for interpretation. FINDINGS: UTERUS: Measures 9.4 x 4.1 x 6.1 cm. Normal in size and appearance, anteverted but slightly retroflexed.. No fibroid or other mass lesion seen. ENDOMETRIUM: Measures 11.7 mm in diameter with moderately heterogeneous fluid in the endometrial cavity which appears mildly distended. The borders of the endometrium appears slightly irregular but without gross mass evident. No hyperemia identified on color Doppler ultrasound. CERVIX: No cervical abnormality identified. RIGHT OVARY: Not identified. No suspicious adnexal mass or fluid collection appreciable. LEFT OVARY: Not identified. No suspicious adnexal mass or fluid collection appreciable. FREE FLUID: No significant free fluid noted. OTHER FINDINGS: None. IMPRESSION: 1. Slightly irregular borders of the endometrium are identified with thickening up to 11.7 mm which is abnormal for postmenopausal patient. Inhomogeneous fluid is identified within the endometrial cavity as well. Clinically correlate for potential endometrial lesion. 2. No myometrial or cervical mass appreciable. 3. Neither ovary is identified. No definite suspicious adnexal fluid collection or mass appreciated bilaterally. Concordant preliminary report from [place], 09/01/2018, 12:42 a.m..
--- NOTE | 2018-09-01 13:41 | CON ---
DATE: 09/01/2018 PULMONARY CONSULTATION NOTE REFERRING PHYSICIAN: Sameera Pugh MD REASON FOR CONSULTATION: Chronic lung disease, shortness of breath, and cough. HISTORY OF PRESENT ILLNESS: This is a 53-year-old female with a past medical history significant for asthma, bronchitis, and pneumonia. The patient is postmenopausal, states her last menstruation was 11 years ago. She came to the emergency room due to complain of vaginal bleeding. Stated that she started bleeding on Friday and that the bleeding has worsened. Initially the patient reports using one to two pads a day. Today, she is using seven to nine pads. The patient seen lying in bed this morning. States she is still actively having vaginal bleeding, reports feeling short of breath at times, occasional nonproductive cough, some weakness and lower abdominal pain. PAST MEDICAL HISTORY: As per history of present illness. ALLERGIES: HAIR DYE. SOCIAL HISTORY: No EtOH. No illicit drug use. Nonsmoker. FAMILY HISTORY: Positive for diabetes and hypertension. MEDICATIONS: Reviewed. Tylenol 650 mg every 6 hours p.r.n. for mild pain, Brovana 15 mcg inhalation every 12 hours, Tessalon Perles 100 mg three times a day, Pulmicort 0.5 mg inhalation every 12 hours, Pepcid 40 mg daily, Dilaudid 0.5 IV push every 4 hours p.r.n. for severe pain, Solu-Medrol 30 mg IV push every 8 hours, and Lyrica 25 mg twice a day. REVIEW OF SYSTEMS: No headache, rhinitis, chest pain, nausea, vomiting, diarrhea, leg pain and leg swelling reported. the patient does report lower abdominal pain. Does report having some shortness of breath at times. Nonproductive cough, occasionally reports feeling weak. PHYSICAL EXAMINATION GENERAL: No acute distress. VITAL SIGNS: Blood pressure 109/70, pulse 61, temperature 97.8, and oxygen saturation 97% on room air. HEENT: Moist mucous membranes. Mallampati score of 4. Crowded airway. NECK: Supple. No JVD. RESPIRATORY: Fair airflow bilaterally. CARDIOVASCULAR: S1 and S2. ABDOMEN: Soft and tender on bilateral lower quadrant. No distention. EXTREMITIES: No bilateral lower extremity edema. NEUROLOGICAL: Awake, alert and verbal. Following commands. LABORATORY DATA: Reviewed. WBC 5.4, RBC 3.65, hemoglobin 11.5, hematocrit 35.6, and platelets 259. PT 10.9, INR 0.98, and APTT 31.4. Sodium 142, potassium 4.3, chloride 108, carbon dioxide 26, anion gap 12, BUN 10, creatinine 0.7, GFR greater than 60, random glucose 91, calcium 8.8, total bilirubin 0.3, AST 24, ALT 16 and alkaline phosphatase 74. Total protein 7.5, albumin 3.8, globulin 3.7, and albumin-globulin ratio 1. Lipase 177. Urine analysis shows urine blood large, positive urine RBCs. Abdomen and pelvis CT shows enlarged hypodense cervix, underlying mass cannot be excluded. Transvaginal ultrasound report pending. IMPRESSION AND PLAN: Vaginal bleeding and history of asthma. Echocardiogram from 04/2018 reviewed, showing ejection fraction of 58.6%, right ventricular systolic pressure 41, and the patient with mild pulmonary hypertension. We will decrease Solu-Medrol to 20 mg every [address] the patient on Zithromax 500 mg daily for exacerbation of chronic lung disease. Recommend Gynecology followup. Sequential compression devices to bilateral lower extremities for deep venous thrombosis prophylaxis as the patient at this time is actively bleeding, cannot be placed on chemical prophylaxis. Repeat labs in the morning. Continue inhaled bronchodilators and gastric prophylaxis. We do suspect sleep apnea in this patient, recommend the patient have full pulmonary function test and sleep study as outpatient. This patient was seen and examined with Dr. Yo. Discussed assessment and plan as described above. This patient was seen and examined with Dillon Gillespie, nurse practitioner. Discussed assessment and plan as described above. Thank you for this consult and we will follow with you. Dillon Gillespie APN Malena Yo MD
[2018-09-01] MEDS ORDERED: MethylPREDNISolone 40 mg Vial IVP SCH (14:00)
[2018-09-01] MEDS: Tmp-Smz 800 mg-160 mg DS Tab PO SCH (17:26)
[2018-09-01] MEDS: MethylPREDNISolone 40 mg Vial IVP SCH (22:19)
--- NOTE | 2018-09-02 02:27 | HP ---
DATE OF EXAM: 09/01/2018 HISTORY OF PRESENT ILLNESS: The patient is a 53-year-old female, came in with complaints of vaginal bleeding for 1 to 3 weeks after not having menstruation for 11 years, complained of fatigue, short of breath. The patient had abdominal CT scan, which showed a pelvic mass in the vagina possible source of bleeding. I saw the patient today at the bedside. The patient was alert, oriented x3, had O2 on, complained of less short of breath today, still bleeding, not as much per patient. Also complained of some lower abdominal pain, decrease in urination and some urinary frequency. She denied hematuria. She denied palpitations. She has some shortness of breath. The patient complained of a lot of pain in the lower abdomen. PAST MEDICAL HISTORY: The patient has a past medical history of sleep apnea, pulmonary hypertension, pneumonia, COPD, prediabetes and nontoxic goiter. FAMILY HISTORY: The patient has a family medical history of diabetes mellitus on mother's side, ischemic heart disease on the father's side, hypertension on mother's side. SOCIAL HISTORY: The patient denies smoking, drinks socially. Lives in a community with older children. PHYSICAL EXAMINATION GENERAL: The patient appeared in no acute distress, appeared fatigued, complained of pain. VITAL SIGNS: Temperature 98, pulse rate 55, blood pressure 113/67, respiratory rate 19, and O2 saturation at 95% on room air. HEENT: Normocephalic, atraumatic. PERRLA. Mucous membranes moist. NECK: Supple. Normal inspection. No thyromegaly. RESPIRATORY: Clear to auscultation. No wheeze, no rhonchi. CARDIOVASCULAR: S1 and S2. No murmur, no gallop, no JVD. ABDOMEN: Distended, soft. Positive bowel sounds. No guarding. Some tenderness in the lower abdomen. SKIN: Intact. No cyanosis. No edema. EXTREMITIES: Moving all extremities. NEUROLOGIC: The patient is alert and oriented x3. Cranial nerves II through XII intact. No cognitive deficits. MEDICATION: Tylenol every 6 hours, Brovana, Zithromax 500 mg p.o. daily, Tessalon Perles, Pulmicort, Pepcid, Dilaudid, Solu-Medrol, Lyrica, Bactrim DS tabs. LABORATORY DATA: White blood cells 5.4, hemoglobin 11.5, hematocrit 35.6, neutrophils 42.6, platelet count 259. INR 0.98, PT 10.9. Sodium 142, potassium of 4.3, BUN 10, creatinine 0.7, GFR was 60. Urinalysis was obtained. Negative for ketones, negative for leukocytosis some red blood cells, culture pending. ASSESSMENT AND PLAN: Ms. Rojas is a 53-year-old female, who came to the emergency room with heavy vaginal bleeding x1 to 2 weeks per the patient. 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 Pulmonary is on the case. We will see results of Gynecology consult, but it was recommending, told the patient today. She enquired about a hysterectomy. We did have that discussion, informed patient we will have Obstetrics and Gynecology following the case, they will speak to her more on that subject; We would plan it accordingly. Will repeat H&H for AM, We will follow up. PT IS S/E AT THE BED SIDE . LOOKING COMFORTABLE . NO CHANGE OF STATUS , AGREED ALL ABOVE , WILL F/U Murali Cunningham APN Sameera Pugh MD [facility]
[2018-09-02] MEDS: HYDROmorphone 0.5 mg/0.5 ml ISec IVP PRN ×3 (05:16→14:02)
[2018-09-02 06:45] LABS: BASO # 0.01 K/mm3 (0.0-2.0); BASO % 0.2 % (0.0-3.0); LYMPH # 0.9 (1.2-3.4); LYMPH % 16.9 % (22.0-35.0); MEAN CELL VOLUME 97.3 fl (80.0-105.0); MEAN CORPUSCULAR HEMOGLOBIN 31.9 pg (25.0-35.0); MEAN CORPUSCULAR HGB CONC 32.8 g/dl (31.0-37.0); MEAN PLATELET VOLUME 10.2 fl (7.0-11.0); MONO # 0.1 (0.1-0.6); MONO % 1.5 % (1.0-6.0); RBC 3.76 10^6/uL (3.5-6.1); RED CELL DISTRIBUTION WIDTH 12.9 % (11.5-14.5); WHITE BLOOD COUNT 5.2 10^3/uL (4.5-11.0)
[2018-09-02 06:57] LABS: BLOOD UREA NITROGEN 11 mg/dL (7-21); GFR NON-AFRICAN AMERICAN > 60
[2018-09-02] MEDS: Arformoterol 15 mcg/2 ml Inh Sol IH SCH ×2 (08:57→20:31)
[2018-09-02] MEDS: Budesonide 0.5 mg/2 ml Inhal Susp UD IH SCH ×2 (08:57→20:31)
[2018-09-02] MEDS: MethylPREDNISolone 40 mg Vial IVP SCH ×2 (09:00→21:27)
[2018-09-02] MEDS: Tmp-Smz 800 mg-160 mg DS Tab PO SCH ×2 (09:01→17:25)
[2018-09-02] MEDS ORDERED: Oxycodone/Acetaminophen 5/325 mg Tab PO PRN (10:46)
[2018-09-02 11:07] LABS: HEMOGLOBIN 12.1 g/dL (12.0-16.0)
--- NOTE | 2018-09-02 14:07 | CP.PCM.CON ---
History of Present Illness - History of Present Illness History of Present Illness: 53yo female with postmenopausal bleeding. Pt reports bleeding started a 'few days ago'. Pt reports heavy bleeding at home. Pt reports only slight bleeding at this time. Pt had H/H followed, which is stable. Pt had CT done which re ported possible cervical mass, but subsequent pelvic ultrasound reported normal anatomy except 11mm endometrium. Past Patient History - Infectious Disease Hx of Infectious Diseases: None - Tetanus Immunizations Tetanus Immunization: Unknown - Past Medical History & Family History Past Medical History?: Yes - Past Social History Smoking Status: Never Smoked - PULMONARY Hx Asthma: Yes Hx Bronchitis: Yes Hx Pneumonia: Yes - INTEGUMENTARY Hx Dermatological Problems: No - MUSCULOSKELETAL/RHEUMATOLOGICAL Hx Falls: No - GASTROINTESTINAL Hx Gastrointestinal Disorders: No - GENITOURINARY/GYNECOLOGICAL Hx Genitourinary Disorders: No Other/Comment: vaginal bleeding - PSYCHIATRIC Hx Substance Use: No - SURGICAL HISTORY Hx Surgeries: Yes Other/Comment: - ANESTHESIA Hx Anesthesia: Yes Hx Anesthesia Reactions: No Hx Malignant Hyperthermia: No Meds Allergies/Adverse Reactions: Allergies Allergy/AdvReac Type Severity Reaction Status Date / Time hair dye Allergy RASH Uncoded 08/31/18 21:09 - Medications Medications: Current Medications Acetaminophen (Tylenol 325mg Tab) 650 mg PO Q6H PRN PRN Reason: Pain, Mild (1-3) Arformoterol Tartrate (Brovana) 15 mcg IH [id number] [facility] Last Admin: 09/02/18 08:57 Dose: 15 mcg Azithromycin (Zithromax) 500 mg PO DAILY [facility]; Protocol Last Admin: 09/02/18 09:01 Dose: 500 mg Benzonatate (Tessalon Perles) 100 mg PO TID [facility] Last Admin: 09/02/18 09:01 Dose: 100 mg Budesonide (Pulmicort Respules) 0.5 mg IH [id number] [facility] Last Admin: 09/02/18 08:57 Dose: 0.5 mg Famotidine (Pepcid) 40 mg PO DAILY [facility] Last Admin: 09/02/18 09:01 Dose: 40 mg Hydromorphone HCl (Dilaudid) 0.5 mg IVP Q4H PRN PRN Reason: Pain, severe (8-10) Last Admin: 09/02/18 14:02 Dose: 0.5 mg Methylprednisolone (Solu-Medrol) 20 mg IVP Q12 [facility] Last Admin: 09/02/18 09:00 Dose: 20 mg Oxycodone/Acetaminophen (Percocet 5/325 Mg Tab) 1 tab PO Q6H PRN PRN Reason: Pain, moderate (4-7) Stop: 09/05/18 10:47 Pregabalin (Lyrica) 25 mg PO BID [facility] Last Admin: 09/02/18 09:01 Dose: 25 mg Trimethoprim/Sulfamethoxazole (Bactrim Ds Tab) 1 tab PO BID [facility]; Protocol Stop: 09/04/18 23:59 Last Admin: 09/02/18 09:01 Dose: 1 tab Physical Exam - Constitutional Appears: Well, No Acute Distress - Head Exam Head Exam: ATRAUMATIC - Eye Exam Eye Exam: Normal appearance, PERRL - ENT Exam ENT Exam: Mucous Membranes Moist - Respiratory Exam Respiratory Exam: NORMAL BREATHING PATTERN - Cardiovascular Exam Cardiovascular Exam: REGULAR RHYTHM - GI/Abdominal Exam GI & Abdominal Exam: Soft. absent: Distended, Tenderness Results - Vital Signs Recent Vital Signs: Last Vital Signs Temp 97.9 F 09/02/18 07:53 Pulse 71 09/02/18 07:53 Resp 20 09/02/18 07:53 BP 122/76 09/02/18 07:53 Pulse Ox 95 09/02/18 07:53 - Labs Result Diagrams: 09/02/18 10:50 09/02/18 06:10 Labs: Laboratory Results - last 24 hr 09/01/18 09/02/18 09/02/18 15:01 06:10 06:10 WBC 5.2 RBC 3.76 Hgb 12.0 Hct 36.6 MCV 97.3 MCH 31.9 MCHC 32.8 RDW 12.9 Plt Count 280 MPV 10.2 Neut % (Auto) 81.4 H Lymph % (Auto) 16.9 L Maury % (Auto) 1.5 Eos % (Auto) 0.0 L Baso % (Auto) 0.2 Lymph # (Auto) 0.9 L Maury # (Auto) 0.1 Eos # (Auto) 0.0 Baso # (Auto) 0.01 Absolute Neuts (auto) 4.25 Sodium 139 Potassium 4.7 Chloride 108 H Carbon Dioxide 23 Anion Gap 13 BUN 11 Creatinine 0.7 Est GFR ( Amer) > 60 Est GFR (Non-Af Amer) > 60 Random Glucose 143 H Calcium 9.0 Urine HCG, Qual Negative 09/02/18 10:50 WBC RBC Hgb 12.1 Hct 36.5 MCV MCH MCHC RDW Plt Count MPV Neut % (Auto) Lymph % (Auto) Maury % (Auto) Eos % (Auto) Baso % (Auto) Lymph # (Auto) Maury # (Auto) Eos # (Auto) Baso # (Auto) Absolute Neuts (auto) Sodium Potassium Chloride Carbon Dioxide Anion Gap BUN Creatinine Est GFR ( Amer) Est GFR (Non-Af Amer) Random Glucose Calcium Urine HCG, Qual - Imaging and Cardiology CT scan - pelvis Status: Report reviewed by me US - abdomen Status: Report reviewed by me Additional comment: pelvis Assessment & Plan - Assessment and Plan (Free Text) Assessment: Postmenopausal bleeding, thickened endometrium. Stable H/H Plan: I discussed with patient findings of pelvic ultrasound. I recommended that she should have pap and EMB done. This can be done as an outpatient. I discussed with patient general information regarding PMB and possible causes. All patient questions answered. Pt was given my contact information and can followup with me in office. - Date & Time Date: 09/02/18 Time: 14:08
--- NOTE | 2018-09-02 16:08 | PN ---
DATE: 09/02/2018 PULMONARY PROGRESS NOTE REFERRING PHYSICIAN: Dr. Sameera Pugh. SUBJECTIVE: The patient is seen lying in bed, reporting pelvic pain. Nursing staff reports that the patient still has vaginal bleeding, using 9 pads a day. No headache, rhinitis, cough, chest pain, nausea, vomiting, diarrhea, leg pain, or leg swelling reported. The patient does report shortness of breath with exertion. OBJECTIVE: GENERAL: No acute distress. VITAL SIGNS: Blood pressure 122/76, pulse 71, temperature 97.9, and oxygen saturation 95%. HEENT: Moist mucous membranes. Mallampati score of 4. Crowded airway. NECK: Supple. No JVD. RESPIRATORY: Fair airflow bilaterally. CARDIOVASCULAR: S1 and S2. ABDOMEN: Soft and tender on bilateral lower quadrants. No distention. EXTREMITIES: No bilateral lower extremity edema. NEUROLOGICAL: Awake, alert, and verbal. Following commands. MEDICATIONS: Reviewed. Tylenol 650 mg every 6 hours p.r.n. for mild pain, Brovana 15 mcg every 12 hours, Zithromax 100 mg daily, Tessalon Perles 100 mg three times a day, Pulmicort 0.5 mg inhalation every 12 hours, Pepcid 40 mg daily, Dilaudid 0.5 mg IV push every 4 hours p.r.n., Solu-Medrol 20 mg every 12 hours, Percocet 5/325 mg every 6 hours p.r.n., Lyrica 25 mg twice a day, and Bactrim DS 1 tab twice a day. LABORATORY DATA: Reviewed. WBC 5.2, RBC 3.76, hemoglobin 12, hematocrit 36.6, and platelets 280. Sodium 139, potassium 4.7, chloride 108, carbon dioxide 23, anion gap 13, BUN 11, creatinine 0.7, GFR greater than 60, random glucose 143, and calcium 9.0. Urine hCG negative. Urine culture final, no growth. Transvaginal ultrasound shows slightly irregular borders of the endometrium identified with thickening up to 11.7 mm which is abnormal for both menopausal patient. Inhomogeneous fluid identified with an endometrial cavity. No myometrial or cervical mass. No definite suspicious adnexal fluid collection or mass appreciated bilaterally. IMPRESSION AND PLAN: Vaginal bleeding and history of asthma. Continue Zithromax for exacerbation of chronic lung disease. Continue steroid dosing and sequential compression devices to bilateral lower extremities for deep venous thrombosis prophylaxis. The patient is actively bleeding at this time. Continue inhaled bronchodilators and gastric prophylaxis, sleep apnea precaution, and head of bed elevated at 45 degrees. We do suspect sleep apnea in this patient and recommend the patient have full pulmonary function test and sleep study as outpatient. The patient is pending Gynecology consult. This patient was seen and examined with Dr. Yo. Discussed assessment and plan as described above. This patient was seen and examined with Dillon Gillespie, nurse practitioner. Discussed assessment and plan as described above. Thank you for this consult. We will follow with you. Dillon Gillespie APN Malena Yo MD
--- NOTE | 2018-09-02 20:22 | PN ---
DATE: 09/02/2018 This case was discussed with Dr. Pugh and she is in agreement with the treatment plan. SUBJECTIVE: This is a 53-year-old female who came in on 08/31/2018 with complaints of vaginal bleeding of 1 to 2 weeks with some lower abdominal pain. She has a past medical history of pneumonia, COPD, obesity, and hypertension. I saw the patient today at bedside, she was sitting up by the bed. Complaint of a lot of lower groin pain in the abdomen, stated less bleeding today. She denied hematuria, shortness of breath, palpitations, hematochezia, fevers and chills. A transvaginal ultrasound was reviewed, which showed a cervical mass, enlarged endometrium. PHYSICAL EXAMINATION VITAL SIGNS: Temperature 97.9, pulse 71, blood pressure 122/76, respiratory rate 20, and O2 saturation on 95% on room air. GENERAL: The patient appeared in no acute distress, did have some acute pain when assessed. HEENT: Normocephalic and atraumatic. PERRLA. Mucous membranes moist. NECK: Supple. Normal inspection. No thyromegaly. RESPIRATORY: Clear to auscultation. No wheeze. No rhonchi. No adventitious breath sounds. CARDIOVASCULAR: S1 and S2. No JVD. No murmur or gallop. ABDOMEN: Soft, distended. Low groin pain. SKIN: Intact. No cyanosis. No edema. NEUROLOGIC: The patient is alert and oriented x3. No focal deficit. MEDICATIONS: The patient is on Tylenol every 6 hours, Brovana, Zithromax p.o., Tessalon Perles three times a day, Pulmicort, Pepcid, pain management Dilaudid, Solu-Medrol, Lyrica, and Bactrim DS. LABORATORY DATA: White blood cells 5.2, hemoglobin 12, hematocrit 36.6, and neutrophils 81.4. Sodium 139, potassium 4.7, BUN 11, creatinine 0.7, glucose 143. INR 0.98 and PT 10.9. Urinalysis showed large amount of blood, negative for nitrates, ketones and glucose, trace amount of red blood cells. Urine culture came back negative. ASSESSMENT AND PLAN: This is a 53-year-old female came in with vaginal bleeding, lower abdominal pain. CT showed a pelvic mass. The patient has chronic obstruction pulmonary disease, lower abdominal pain, urinary frequency, obesity. The patient is being managed with antibiotics, Brovana, Solu-Medrol, Pulmicort, Lyrica, and Bactrim. A CBC today, 09/02/2018; hemoglobin remains at 12.1, hematocrit remains at 36.5, neutrophil is elevated. The patient was seen by Obstetrics and Gynecology. pelvic ultrasound was discussed with patient per notes The patient will have an endometrial biopsy done, outpatient. I have discussed with the patient today that she will be seeing an Obstetrics and Gynecology and we will plan accordingly. We will monitor the patient's hemoglobin and hematocrit tomorrow and to discharge the patient probably tomorrow. She will follow up Obstetrics and Gynecology outpatient. We will follow up. ALL ABOVE NOTED , AGREED ALL GRAIN BROKER PLAN , WILL F/U Murali Cunningham APN Sameera Pugh MD [facility]
[2018-09-03 08:02] VITALS: BP 112/66; PULSE 69; RESP 20; TEMP 98.2; O2SAT 97
[2018-09-03] MEDS: Budesonide 0.5 mg/2 ml Inhal Susp UD IH SCH (08:06)
[2018-09-03] MEDS: Arformoterol 15 mcg/2 ml Inh Sol IH SCH (08:06)
[2018-09-03] MEDS: MethylPREDNISolone 40 mg Vial IVP SCH (09:17)
[2018-09-03] MEDS: Tmp-Smz 800 mg-160 mg DS Tab PO SCH (09:17)
--- NOTE | 2018-09-03 11:58 | PN ---
DATE: 09/03/2018 REFERRING PHYSICIAN: Dr. Sameera Pugh. SUBJECTIVE: The patient is seen lying in bed, no acute distress. No overnight events reported. Reports that she does have some lower abdominal pain, but states she is feeling better today. No headache, rhinitis, cough, chest pain, nausea, vomiting, diarrhea, leg pain or leg swelling reported. Improvement in shortness of breath. OBJECTIVE: GENERAL: No acute distress. VITAL SIGNS: Blood pressure 112/66, pulse 69, temperature 98.2, oxygen saturation 97%. HEENT: Moist mucous membranes. Mallampati score of 4. Crowded airway. NECK: Supple. No JVD. RESPIRATORY: Fair airflow bilaterally. CARDIOVASCULAR: S1, S2. ABDOMEN: Soft, mild tenderness bilateral lower quadrants. No distention. EXTREMITIES: No bilateral lower extremity edema. NEUROLOGICAL: Awake, alert, and verbal. Following commands. MEDICATIONS: Reviewed. Tylenol 650 every 6 hours p.r.n. mild pain, Brovana 15 mcg every 12 hours, Zithromax 500 mg daily, Tessalon Perles 100 mg three times a day, Pulmicort 0.5 mg inhalation every 12 hours, Pepcid 40 mg daily, Dilaudid 0.5 mg IV push every 4 hours p.r.n., Solu-Medrol 20 mg every 12 hours, Percocet 5/325 mg every 6 hours p.r.n., Lyrica 25 mg twice a day, Bactrim DS 1 tab twice a day. LABORATORY DATA: Reviewed. No new labs since yesterday. IMPRESSION AND PLAN: Vaginal bleeding. The patient has history of asthma. Scheduled for discharge home today. The patient was seen by supervisor extruding department who recommends endometrial biopsy as outpatient. We recommend the patient go home on Zithromax 500 mg daily for 5 days and Medrol Dosepak prescriptions were given to nursing staff. Case was discussed with Dr. Pugh. The patient at this time is hemodynamically stable. Hemoglobin, hematocrit is stable at this time. Continue inhaled bronchodilators. We recommend the patient have full pulmonary function test and sleep study as outpatient. This patient was seen and examined with Dr. Yo. Discussed assessment and plan as described above. This patient was seen and examined with Dillon Gillespie, nurse practitioner. Discussed assessment and plan as described above. Thank you for this consult. We will follow with you. Dillon Gillespie APN Malena Yo MD
--- NOTE | 2018-09-04 10:12 | DS ---
The patient was seen and examined at the bedside on 09/03/2018. Looking comfortable, coughing, having wheezing. No fever. No chills. No hematuria or hematochezia. Vaginal bleeding is decreasing. No headache or dizziness. No chest pain. No palpitation. CHIEF COMPLAINT: Heavy vaginal bleeding. HISTORY OF PRESENT ILLNESS: Ms. Lola Rojas is 53-year-old female, my private patient with past medical history of hypertension, COPD, and prediabetic, came in emergency room with vaginal bleeding. We did CAT scan of abdomen and pelvis, vaginal ultrasound, put consult with CHEMICAL OPERATIONS SPECIALIST, Dr. Bay Razo saw the patient. Dr. Yo saw the patient for asthma and bleeding decreased. Gynecology cleared the patient for discharge. Follow up as outpatient. The patient has appointment actually with nondestructive tester tomorrow as outpatient. Medications provided at the bedside. PAST MEDICAL HISTORY: As above. Hypertension, history of pneumonia, COPD, and prediabetic. FAMILY HISTORY: Mother and father, noncontributory. HABITS: No smoking. Alcohol socially. No drugs. PHYSICAL EXAMINATION: VITAL SIGNS: Temperature 98.2, pulse 59, blood pressure 112/66, and respiratory 20. HEENT: Head is normocephalic and atraumatic. Eyes; PERRLA. Extraocular muscles intact. Conjunctiva clear. Nose patent. Mucous membranes moist. NECK: Supple. No carotid bruits or thyromegaly. CHEST: Bilaterally symmetrical. HEART: S1 and S2 positive. LUNGS: Clear. Positive wheezing bilaterally. ABDOMEN: Soft. Bowel sounds present. No organomegaly. EXTREMITIES: No edema. No cyanosis. NEUROLOGIC: The patient is awake and alert; follows simple commands. LABORATORY DATA: White blood cell 5.2, hemoglobin 12.1, hematocrit 36.5, and platelets 280. Sodium 139, potassium 4.7, BUN 11, creatinine 0.7, and glucose 143. ASSESSMENT AND PLAN: Ms. Lola Rojas is 53-year-old, my private patient with anemia, hyperchloremia, hyperglycemia; has large blood in the urine because she has vaginal bleeding. Seen by Dr. Bay Razo, CHEMICAL OPERATIONS SPECIALIST. The patient has postmenopausal bleeding, came with heavy bleeding. Now, it has slowed down. The CAT scan showed cervical mass, but subsequent pelvic ultrasound reports normal anatomy except 11 mm endometrium. CHEMICAL OPERATIONS SPECIALIST recommended the patient should have Pap smear and endometrial biopsy as outpatient. CHEMICAL OPERATIONS SPECIALIST gave the patient appointment for followup as outpatient for tomorrow. Appreciated Dr. Bay Razo's input. The patient has history of chronic obstructive pulmonary disease, came with having exacerbation of chronic obstructive pulmonary disease; getting Zithromax and tapering dose of steroids. We will discharge the patient with Zithromax and tapering dose of steroids. Gastrointestinal and deep venous thrombosis prophylaxis. Continue inhaled bronchodilators. Medications provided at the bedside. The patient's all questions answered. She is comfortable to go home. Followup as outpatient. Sameera Pugh MD
== END 2018-09-03 13:34 | disposition home or self-care (01) ==
LOC: ED 20:42 → ERH 09-01 01:01 → 3RNO 09-01 02:11
PROVIDERS: ADMIT Internal Medicine; ATTEND Internal Medicine
DX: N95.0 Postmenopausal bleeding (principal); R19.00 Intra-abdominal and pelvic swelling, mass and lump, unspecified site; R73.03 Prediabetes; N39.0 Urinary tract infection, site not specified; D64.9 Anemia, unspecified; G47.30 Sleep apnea, unspecified; I10 Essential (primary) hypertension; I27.20 Pulmonary hypertension, unspecified; J44.9 Chronic obstructive pulmonary disease, unspecified; E66.9 Obesity, unspecified; Z68.37 Body mass index [BMI] 37.0-37.9, adult; Z83.3 Family history of diabetes mellitus
CPT/HCPCS: 36415; 74177; 76830; 80048; 80053; 81001; 83690; 84703; 85014; 85018; 85025; 85610; 85730; 86850; 86900; 87086; 94640; 96374; 99285; G0378; J1170; J2270; J2920; Q9967